=== PATIENT | female | born 1970 | race Caucasian/White ===

== ENCOUNTER 2023-05-02 08:26 | Day surgery (SDC) | payer MEDICARE, MEDICAID, SELFPAY ==
--- NOTE | 2023-05-02 08:44 | W.PM.PROCNOT ---
Date of procedure: 05/02/23 Procedure: Left knee joint injection using Durolane 3ml. Pre & postoperative diagnosis: pain secondary to left knee osteoarthritis. Immediate complications none. Anesthesia: 2% lidocaine plain for skin wheal. After informed consent was obtained, patient brought to the OR placed in the supine position. Skin overlying the area was prepped and draped using Betadine. 25-gauge 1/2 inch needle was used for skin wheal over the medial aspect of the left knee joint identified under fluoroscopy. Omnipaque dye was used to confirm needle tip placement within the knee joint space 0.5 mL use of the injection. Subsequently 3ml of durolane was injected into the space. No indication of intravascular or intraneuronal needle tip placement or injection was noted post procedure. The needle was removed, patient transferred to Recovery room in stable condition to discharged home after meeting criteria. Surgeon: Tera Minaya
[2023-05-02 09:01] VITALS: BP 88/59; PULSE 74; RESP 16; TEMP 36.7; O2SAT 98
[2023-05-02] MEDS: IOHEXOL 240 MG/ML - 10 ML VIAL INJ (10:15)
[2023-05-02] MEDS: LIDOCAINE HCL 2% PF 100 MG/5 ML VIAL INJ (10:15)
[2023-05-02] MEDS: HYALURONATE SODIUM, STABILIZED 60 MG/3 ML SYRINGE IU (10:16)
[2023-05-02 10:17] VITALS: BP 100/62; BP 105/56; PULSE 66; PULSE 67; RESP 20; O2SAT 94; O2SAT 97
== END 2023-05-02 10:23 | disposition home or self-care (01) ==
LOC: SURGOUT 08:29
PROVIDERS: PCP Internal Medicine; Visit Provider Anesthesiology Pain Medicine
DX: M17.12 Unilateral primary osteoarthritis, left knee (principal)
CPT/HCPCS: 20610; 77002; J7318; Q9966

== ENCOUNTER 2023-05-19 08:16 | Outpatient (OUT) | payer MEDICARE, MEDICAID, SELFPAY ==
--- NOTE | 2023-05-19 08:33 | P.CN_ITS ---
Consult Note: HPI Data of Consult Patient: known to practice within the last 3 years Consult date: 05/19/23 Requesting Physician: JOSE MATIAS NP Primary Care Provider: Shaikh Betty MD Consult Narrative Narrative: Patient is here for f/u of durolane injection done 03/30/23 . She recieved 30% relief of pain. Pain today is in left knee worse with standing, stairs . No new sensorimotor or bowel or bladder issues. No adverse medication SE. Medication regimen assists patient with being better able to complete ADLs. She has had steroid injections previously without relief. She states she saw ortho awhile back who told her she would need replacement eventually, but she does not want surgery at this time. We discussed the GNB procedure as a possible option and she was given educational information. cc:: CC: JOSE MATIAS NP Review of Systems ROS Status of ROS 10 or more systems reviewed and unremarkable except as noted in history and below Musculoskeletal Reports: joint pain PFSH PFS Medical History (Updated 05/19/23 @ 08:51 by JOSE MATIAS NP) Surgical History Meds Home Medications and Allergies Home Medications Medication Instructions Recorded Confirmed Type MEDICAL MARIJUANA PRN pain 04/27/23 History baclofen 10 mg tablet 10 mg PO TID PRN muscle spasm 04/27/23 05/02/23 History hydroxyzine pamoate 25 mg capsule 25 mg PO TID-QID PRN nausea and 04/27/23 05/02/23 History (Vistaril) vomiting lamotrigine 150 mg tablet 150 mg PO Q12H 04/27/23 05/02/23 History quetiapine 300 mg tablet 300 mg PO .QD 04/27/23 05/02/23 History sertraline 50 mg tablet (Zoloft) 50 mg PO DAILY 04/27/23 05/02/23 History sumatriptan succinate 100 mg See Rx Instructions PO .COMPLEX 04/27/23 05/02/23 History tablet (Imitrex) Allergies Allergy/AdvReac Type Severity Reaction Status Date / Time morphine Allergy Vomiting Verified 05/02/23 08:58 Exam Constitutional Documenting provider has reviewed patient's vital signs: yes Common normals: no apparent distress, average body habitus, oriented x3, healthy appearing, alert and well nourished General appearance: cooperative, comfortable and well developed Orientation/consciousness: Yes awake, Yes oriented to person, Yes oriented to place and Yes oriented to time HENMT Common normals: normocephalic and moist oral mucous membranes Respiratory Common normals: normal respiratory effort, no retractions and no use of acces silverio muscles Effort & inspection: able to speak in complete sentences and symmetric chest movement Extremity Common normals: normal to inspection, normal capillary refill, no joint enlargement and no pedal edema Other: pain medial and lateral left knee worse with ROM. muscle strength 4/5 left d/t pain, 5/5 right LE with intact sensation Assessment and Plan Assessment and Plan (1) Knee osteoarthritis: Plan educational material on GNB f/u 6 months
== END 2023-05-19 08:17 | disposition home or self-care (01) ==
LOC: PM 08:17
PROVIDERS: PCP Internal Medicine; Visit Provider Nurse Practitioner
DX: M17.12 Unilateral primary osteoarthritis, left knee (principal)
CPT/HCPCS: G0463

== ENCOUNTER 2024-05-06 20:25 | Outpatient (REF) | payer MEDICARE, MEDICAID, SELFPAY ==
[2024-05-09 12:18] LABS: Age Gdln ACOG Testing Note (.); HPV Aptima Negative (Negative); IGP, Aptima HPV, rfx 16/18,45 Note (.)
== END 2024-05-06 20:26 | disposition home or self-care (01) ==
LOC: LAB 20:25
PROVIDERS: PCP Internal Medicine; Visit Provider Obstetrics & Gynecology
DX: Z01.419 Encounter for gynecological examination (general) (routine) without abnormal findings (principal)
CPT/HCPCS: 88175

== ENCOUNTER 2025-05-08 12:21 | Outpatient (REF) | payer MEDICARE, MEDICAID, SELFPAY ==
--- OUTSIDE RECORDS SUMMARY | 2025-05-07 09:00 | XMS_ITS | Encounter Summary ---
Author Organization [facility] 1bib [facility] Address [id number] [address] [place] [address] Care Team Providers Care Paster Hat Lining Name Role Phone Monserrat Bell APRN-SUSTAINABILITY DIRECTOR Primary Care Provider Reason for Referral * Cardiology (Routine) - Closed Specialty Diagnoses / Procedures Referred By Contac t Referred To Contact Diagnoses Preop examination Procedures ECG 12 lead Senthil Ortega MD [address] [place] [id number] Phone: tel: fax: Referral ID Status Reason Start Date Expiration Date Visits Re quested Visits Authorized [id number] Closed 04/29/2025 04/29/2026 1 1 Encounter Details Date Type Department Care Team (Latest Contact Info) Description 05/07/2025 9:00 AM EDT Procedure visit [facility] - Pre Admit [address] [place] [address] Preop examination (Primary Dx) Social History Tobacco Use Types Packs/Day Years Used Date Smoking Tobacco: Never Smokeless Tobacco: Never Alcohol Use Standard Drinks/Week Comments Yes 0 (1 standard drink = 0.6 oz pur e alcohol) rarely [facility] Utilities Answer Date Recorded In the past 12 months has e electric, gas, oil, or water company threatened to shut off services in your home? No 02/14/2024 AUDIT-C Answer Date Recorded Q1: How often do you have a drink containing alc ohol? Monthly or less 02/14/2024 Q2: How many drinks containi ng alcohol do you have on a typical day when you are drinking? 1 or 2 02/14/2024 Q3: How often do you have si x or more drinks on one occasion? Never 02/14/2024 PHQ-2 Answer Date Recorded Total Score 0 02/14/2024 PRAPARE - Transportation Answer Date Re corded In the past 12 months, has l ack of transportation kept you from medical appointments or from getting medications? No 02/04 In the past 12 months, has l ack of transportation kept you from meetings, work, or from getting things needed for daily living? No 02/14/2024 Housing Instability Answer Date Recorde d Are you worried or concerned that in the next two months you may not have stable housing that you own, rent or stay in as a part of a household? No 02/14/2024 Childcare Answer Date Recorded Childcare Unknown 04/17/2019 Employment Answer Date Recorded Employment Unknown 04/17/2019 Hunger Screening Answer Date Recorded Within the past 12 months we worried whether our food would run out before we got money to buy more. Never True 10/29/2024 Within the past 12 months th e food we bought just didn't last and we didn't have money to get more. Never True 10/29/2024 Purpose - Life Answer Date Recorded Purpose and direction in life Unknown Comments No Sex and Gender Information Value Date Recorded Sex Assigned at Not on file Legal Sex Female 5:18 PM EDT Gender Identity Not on file Sexual Orientation Not on file documented as of this encounter Last Filed Vital Signs Vital Sign Reading Time Taken Comments Blood Pressure - - Pulse - - Temperature - - Respiratory Rate - - Oxygen Saturation - - Inhaled Oxygen Concentration - - Weight 76.2 kg (168 lb) 05/07/2025 9:04 AM EDT Height 157.5 cm (5' 2 ) 05/07/2025 9:04 AM EDT Body Mass Index 30.73 05/07/2025 9:04 AM EDT documented in this encounter Patient Instructions * Patient Instructions* Shelly Hamilton RN - 05/07/2025 9:00 AM EDT Preoperative Education Checklist- General Surgery date: 05/27/25 Surgery time: 1230 p.m. Arrival time: 1030 a.m. 1. Bring a photo ID and your insurance card with you the day of surgery. You will check in at the main lobby of the [facility]- registration desk is straight ahead as soon as you walk in. Tell them you are here for surgery. 2. If you have a Living Will/Durable Power of Pad Assembler for Health Care that is not on file here, please bring a copy the day of surgery. 3. Please shower/bathe the night before surgery with the provided soap or wipes. Do not shower the morning of surgery- you will do use wipes when you arrive here at the hospital before getting into your surgical gown. Do not shave the area of your procedure for 2 days prior to your surgery. 4. NO powder, lotion, perfume/cologne, aftershave, make-up, deodorant, or hair products after you have bathed. 5. NO nail russian/acrylic on at least one finger. If you are having a hand, wrist or foot surgery then all nail russian and artificial/acrylic nails must be removed from that hand or foot. 6. Avoid ALL Aspirin and non-steroidal anti-inflammatory drugs and certain vitamins (Ibuprofen, Advil, Aleve, Excedrin, Meloxicam, Celebrex, fish/krill oil, etc.) for 7 days prior to surgery as instructed by your surgeon and/or your prescribing doctor. Tylenol IS ALLOWED. If you are on Ticlid, Xarelto, Eliquis, Pradaxa, Plavix or Coumadin, please check with your prescribing doctor for instructions for when to stop them. 7. If you use an inhaler, continue to use it routinely. 8. Nothing to eat or drink (not even water, gum, mints, or hard candy!) AFTER midnight prior to your surgery. 9. Take only medications that you are instructed to on the morning of surgery with a TINY SIP OF WATER. 10. Choose a responsible adult that will be able to drive you home when you are discharged from your hospital stay for your surgery and can stay with you in your home for 24 hours after your procedure. You must NOT drive any vehicle or operate any machinery for 24 hours after surgery. 11. When you dress for your appointment, please wear loose fitting clothing that is appropriate to accommodate your surgical area procedure. BRING WITH YOU ANY DEVICES YOU MAY NEED: CHARLES hose, ice machine, sling/swath, brace or special shoe, oversized zip-up or button up shirt, CPAP machine if staying overnight. 12. Do NOT wear jewelry, watches, or any piercings or metal for surgery- leave these valuables and money at home. 13. Do NOT wear contact lenses for surgery- glasses are okay if needed. 14. The anesthesiologist will talk with you the day of surgery and will ask you to sign a Consent Form. 15. Refrain from smoking or any type of tobacco use for at least 8 hours and marijuana for 24 hoursprior to arrival for your surgery. 16. Notify your surgeon if you develop any illness before your surgery. 17. If you are staying overnight, please DO NOT BRING your home medications with you. 18. If you have any questions prior to surgery, please call the Preadmission Testing office at [phone], Mon.-Fri. 7 a.m.-3 p.m. Leave a voicemail if needed. Pre-Surgery Instructions: Medication Instructions lamoTRIgine (LaMICtal) 150 mg tablet Stop taking 0 days prior to procedure ascorbic acid, vitamin C, (VITAMIN C) 250 mg tablet Stop taking 0 days prior to procedure calcium citrate (CALCITRATE) 200 mg (950 mg) tablet Stop taking 0 days prior to procedure cholecalciferol, vitamin D3, (VITAMIN D3) 5,000 units capsule Stop taking 0 days prior to procedure estradioL (ESTRACE) 1 mg tablet Stop taking 0 days prior to procedure magnesium (MAGTAB) 84 mg tablet extended release CR tablet Stop taking 0 days prior to procedure omeprazole (PriLOSEC) 20 mg capsule Continue as prescribed, take morning of procedure QUEtiapine (SEROquel) 300 mg tablet Stop taking 0 days prior to procedure SUMAtriptan (IMITREX) 100 mg tablet Stop taking 0 days prior to procedure traZODone (DESYREL) 50 mg tablet Stop taking 0 days prior to procedure How to Avoid an Infection after Your Surgery Your doctor will give you specific instructions, but remember: -ALWAYS wash hands before caring for your incision. -No picking, scratching, or rubbing your incision. -No creams, lotion, powder, rubbing alcohol or hydrogen peroxide on the incision (can harm the tissue and slow healing). -Your doctor will give you specific instructions for what type of dressing you will need and how often it will need changed for infection purposes. -No tight clothing on incision. -Do not allow anyone to touch your incision unless they are cleaning, checking, or redressing it (be sure they wash their hands first). -No contact of your incision with pets; avoid sleeping with pets. -Take full course of antibiotic if prescribed for you after surgery- do not stop unless directed home your physician. You may also be given an antibiotic prior to your surgery to help prevent surgical site infections. -Eat a healthy and varied diet including proteins, fruits, and vegetables to help promote wound healing and keep blood sugars under control if you are diabetic. -Smoking slows the healing process by decreasing the amount of oxygen in your blood that is needed for tissue healing. Try to avoid or stop smoking if possible. LOOK at your incision each morning and each night to check the progress of healing. Some soreness, numbness, itching and/or mild bruising around the incision is normal. Call your doctor if you noticeany of the following: -Increased redness or hardening around the incision area. -Increased pain at the incision site. -Incision feels hot to the touch. -Swelling or pulling apart of the incision edges. -Yellow or green drainage or foul odor coming from the incision. -Bleeding from the incision (apply pressure as needed). -Fever higher than 101 degrees Fahrenheit for more than 4 hours. SHOWERING: Your doctor will give you specific instructions, but remember: -Be careful getting into and out of the shower. -Showers should be quick (5 minutes or less). -Use a clean washcloth to gently wash your incision with soap and water and pat the area dry with aclean towel. -No re-using wash cloths or towels; get a fresh one to clean your incision. -Do not soak in the bathtub, go swimming or use a hot tub (Jacuzzi), or perform activities where your incision is submerged in water or exposed to any fluids or substances until instructed by your doctor. -If your have the sticky strips (steri-strips) over the incision, it is OK to shower with them. Do not remove them. Let them fall off on their own. If you have a question, call your doctor’s office. Go to the follow-up appointment with your doctor. documented in this encounter Miscellaneous Notes * Perioperative Nursing Note - Shelly Hamilton RN - 05/07/2025 9:00 AM EDT Preoperative Education Checklist- General Surgery date: 05/27/25 Surgery time: 1230 p.m. Arrival time: 1030 a.m. 1. Bring a photo ID and your insurance card with you the day of surgery. You will check in at the main lobby of the [facility]- registration desk is straight ahead as soon as you walk in. Tell them you are here for surgery. 2. If you have a Living Will/Durable Power of Pad Assembler for Health Care that is not on file here, please bring a copy the day of surgery. 3. Please shower/bathe the night before surgery with the provided soap or wipes. Do not shower the morning of surgery- you will do use wipes when you arrive here at the hospital before getting into your surgical gown. Do not shave the area of your procedure for 2 days prior to your surgery. 4. NO powder, lotion, perfume/cologne, aftershave, make-up, deodorant, or hair products after you have bathed. 5. NO nail russian/acrylic on at least one finger. If you are having a hand, wrist or foot surgery then all nail russian and artificial/acrylic nails must be removed from that hand or foot. 6. Avoid ALL Aspirin and non-steroidal anti-inflammatory drugs and certain vitamins (Ibuprofen, Advil, Aleve, Excedrin, Meloxicam, Celebrex, fish/krill oil, etc.) for 7 days prior to surgery as instructed by your surgeon and/or your prescribing doctor. Tylenol IS ALLOWED. If you are on Ticlid, Xarelto, Eliquis, Pradaxa, Plavix or Coumadin, please check with your prescribing doctor for instructions for when to stop them. 7. If you use an inhaler, continue to use it routinely. 8. Nothing to eat or drink (not even water, gum, mints, or hard candy!) AFTER midnight prior to your surgery. 9. Take only medications that you are instructed to on the morning of surgery with a TINY SIP OF WATER. 10. Choose a responsible adult that will be able to drive you home when you are discharged from your hospital stay for your surgery and can stay with you in your home for 24 hours after your procedure. You must NOT drive any vehicle or operate any machinery for 24 hours after surgery. 11. When you dress for your appointment, please wear loose fitting clothing that is appropriate to accommodate your surgical area procedure. BRING WITH YOU ANY DEVICES YOU MAY NEED: CHARLES hose, ice machine, sling/swath, brace or special shoe, oversized zip-up or button up shirt, CPAP machine if staying overnight. 12. Do NOT wear jewelry, watches, or any piercings or metal for surgery- leave these valuables and money at home. 13. Do NOT wear contact lenses for surgery- glasses are okay if needed. 14. The anesthesiologist will talk with you the day of surgery and will ask you to sign a Consent Form. 15. Refrain from smoking or any type of tobacco use for at least 8 hours and marijuana for 24 hoursprior to arrival for your surgery. 16. Notify your surgeon if you develop any illness before your surgery. 17. If you are staying overnight, please DO NOT BRING your home medications with you. 18. If you have any questions prior to surgery, please call the Preadmission Testing office at [phone], Mon.-Fri. 7 a.m.-3 p.m. Leave a voicemail if needed. Pre-Surgery Instructions: Medication Instructions lamoTRIgine (LaMICtal) 150 mg tablet Stop taking 0 days prior to procedure ascorbic acid, vitamin C, (VITAMIN C) 250 mg tablet Stop taking 0 days prior to procedure calcium citrate (CALCITRATE) 200 mg (950 mg) tablet Stop taking 0 days prior to procedure cholecalciferol, vitamin D3, (VITAMIN D3) 5,000 units capsule Stop taking 0 days prior to procedure estradioL (ESTRACE) 1 mg tablet Stop taking 0 days prior to procedure magnesium (MAGTAB) 84 mg tablet extended release CR tablet Stop taking 0 days prior to procedure omeprazole (PriLOSEC) 20 mg capsule Continue as prescribed, take morning of procedure QUEtiapine (SEROquel) 300 mg tablet Stop taking 0 days prior to procedure SUMAtriptan (IMITREX) 100 mg tablet Stop taking 0 days prior to procedure traZODone (DESYREL) 50 mg tablet Stop taking 0 days prior to procedure How to Avoid an Infection after Your Surgery Your doctor will give you specific instructions, but remember: -ALWAYS wash hands before caring for your incision. -No picking, scratching, or rubbing your incision. -No creams, lotion, powder, rubbing alcohol or hydrogen peroxide on the incision (can harm the tissue and slow healing). -Your doctor will give you specific instructions for what type of dressing you will need and how often it will need changed for infection purposes. -No tight clothing on incision. -Do not allow anyone to touch your incision unless they are cleaning, checking, or redressing it (be sure they wash their hands first). -No contact of your incision with pets; avoid sleeping with pets. -Take full course of antibiotic if prescribed for you after surgery- do not stop unless directed home your physician. You may also be given an antibiotic prior to your surgery to help prevent surgical site infections. -Eat a healthy and varied diet including proteins, fruits, and vegetables to help promote wound healing and keep blood sugars under control if you are diabetic. -Smoking slows the healing process by decreasing the amount of oxygen in your blood that is needed for tissue healing. Try to avoid or stop smoking if possible. LOOK at your incision each morning and each night to check the progress of healing. Some soreness, numbness, itching and/or mild bruising around the incision is normal. Call your doctor if you noticeany of the following: -Increased redness or hardening around the incision area. -Increased pain at the incision site. -Incision feels hot to the touch. -Swelling or pulling apart of the incision edges. -Yellow or green drainage or foul odor coming from the incision. -Bleeding from the incision (apply pressure as needed). -Fever higher than 101 degrees Fahrenheit for more than 4 hours. SHOWERING: Your doctor will give you specific instructions, but remember: -Be careful getting into and out of the shower. -Showers should be quick (5 minutes or less). -Use a clean washcloth to gently wash your incision with soap and water and pat the area dry with aclean towel. -No re-using wash cloths or towels; get a fresh one to clean your incision. -Do not soak in the bathtub, go swimming or use a hot tub (Jacuzzi), or perform activities where your incision is submerged in water or exposed to any fluids or substances until instructed by your doctor. -If your have the sticky strips (steri-strips) over the incision, it is OK to shower with them. Do not remove them. Let them fall off on their own. If you have a question, call your doctor’s office. Go to the follow-up appointment with your doctor. * Perioperative Nursing Note - Shelly Hamilton RN - 05/07/2025 9:00 AM EDT Hibiclens and surgical instructions reviewed. Patient verbalized understanding. documented in this encounter Plan of Treatment Upcoming Encounters Date Type Department Care Team (Late st Contact Info) Description 05/27/2025 12:30 PM EDT Hospital Encounter [facility] - Surgery [address] [facility] [place] [address] Jos Landeros Jr., DO [address] [facility] [address] [place] [address] 05/27/2025 12:30 PM EDT - 05/27/2025 1:45 PM EDT Surgery [facility] - Surgery [address] [facility] [place] [address] Jos Landeros Jr., DO [address] [facility] [address] [place] [address] ARTHROSCOPIC LATERAL RELEASE KNEE [[id number] (CPT )] Scheduled Procedures Name Priority Associated Diagnoses Date/Ti nm ARTHROSCOPIC LATERAL RELEASE KNEE left knee internal derangement 05/27/2025 12:30 PM EDT ARTHROSCOPIC PARTIAL SYNOVECTOMY KNEE left knee internal derangement 05/27/2025 12:30 PM EDT documented as of this encounter Goals Goal Patient Goal Type Associated Problems Recent Progress Patient-Stated? Author Autogenera charles Goal Care Plan Autogenerated Problem No Katy Godinez documented as of this encounter Results * ECG 12 lead (05/07/2025 9:16 AM EDT) 05/07/2025 9:16 AM EDT Narrative TRACEMASTERVUE - 05/07/2025 2:48 PM EDT us Senthil Ortega MD ECG ORDERABLES Final Result [facility]AC[facility]ASTERVUE documented in this encounter Visit Diagnoses Diagnosis Preop examination- Primary Unspecified pre-operative examination Preop examination Unspecified pre-operative examination documented in this encounter Additional Health Concerns Active Problems Noted Date Diagnosed Date Autogenerated Problem 04/22/2025 Assessment Noted Time PHQ-9 Depression Total Score: 0 02/14/20 24 2:46 PM EDT documented as of this encounter Care Teams Paster Hat Lining Relationship Specialty Start Date End Date Monserrat Bell, STRUCTURAL MILL SUPERVISOR-SUSTAINABILITY DIRECTOR PCP - General Nurse Practitioner 01/31/25 documented as of this encounter
--- OUTSIDE RECORDS SUMMARY | 2025-05-07 09:01 | XMS_ITS | Encounter Summary ---
Author Organization [facility] tem Address [id number] [address] [place] [address] Care Team Providers Care Dcs Engineer Name Role Phone Monserrat Bell APRN-ASPHALT ROLLER OPERATOR Primary Care Provider Reason for Referral * Cardiology (Routine) - Closed Specialty Diagnoses / Procedures Referred By Contac t Referred To Contact Diagnoses Preop examination Procedures ECG 12 lead Senthil Ortega MD [facility] [place] [address] Phone: tel: fax: Referral ID Status Reason Start Date Expiration Date Visits Re quested Visits Authorized [id number] Closed 04/29/2025 04/29/2026 1 1 Reason for Visit * Cardiology (Routine) - Closed Specialty Diagnoses / Procedures Referred By Contac t Referred To Contact Diagnoses Preop examination Procedures ECG 12 lead Senthil Ortega MD [address] [place], [place] [address] [address] Phone: tel: fax: Referral ID Status Reason Start Date Expiration Date Visits Re quested Visits Authorized [id number] Closed 04/29/2025 04/29/2026 1 1 Encounter Details Date Type Department Care Team (Latest Contact Info) Description 05/07/2025 9:01 AM EDT - 05/07/2025 11:59 PM EDT Hospital Encounter [facility] - Cardiovascular [address] [place] [id number] Senthil Ortega MD [address] [place] [address] Preop examination Discharge Disposition: Home Social History Tobacco Use Types Packs/Day Years Used Date Smoking Tobacco: Never Smokeless Tobacco: Never Alcohol Use Standard Drinks/Week Comments Yes 0 (1 standard drink = 0.6 oz pur e alcohol) rarely [facility] Utilities Answer Date Recorded In the past 12 months has th e electric, gas, oil, or water company [...] on file documented as of this encounter Medications at Time of Discharge ascorbic acid, vitamin C, (VITAMIN C) 250 mg tablet Take 1 tablet (250 mg total) by mouth in the morning. calcium citrate (CALCITRATE) 200 mg (950 mg) tablet Take 1 tablet (200 mg total) by mouth in the morning. cholecalciferol, vitamin D3, (VITAMIN D3) 5,000 units capsule Take 1 capsule (5,000 Units total) by mouth in the morning. lamoTRIgine (LaMICtal) 150 mg tablet Take 1 tablet (150 mg total) by mouth in the morning and 1 tablet (150 mg total) before bedtime. magnesium (MAGTAB) 84 mg tablet extended release CR tablet Take 1 tablet (84 mg total) by mouth in the morning. omeprazole (PriLOSEC) 20 mg capsule 1 capsule (20 mg total) every morning before breakfast. 03/26/2024 QUEtiapine (SEROquel) 300 mg tablet Take 1 tablet (300 mg total) by mouth nightly. SUMAtriptan (IMITREX) 100 mg tablet Take 1 tablet (100 mg total) by mouth as needed. traZODone (DESYREL) 50 mg tablet Take 1 tablet (50 mg total) by mouth nightly as needed. documented as of this encounter Plan of Treatment Upcoming Encounters Date Type Department Care Team (Late st Contact Info) Description 05/27/2025 12:30 PM EDT Hospital Encounter [facility] - Surgery [address] [place] [address] Jos Landeros Jr., DO [address] [facility] [address] [place] [address] 05/27/2025 12:30 PM EDT - 05/27/2025 1:45 PM EDT Surgery [facility] - Surgery [address] [facility] [place] [address] Jos Landeros Jr., DO [address] [facility] [address] [place] [address] ARTHROSCOPIC LATERAL RELEASE KNEE [[id number] (CPT )] Scheduled Procedures Name Priority Associated Diagnoses Date/Ti me ARTHROSCOPIC LATERAL RELEASE KNEE left knee internal derangement 05/27/2025 12:30 PM EDT ARTHROSCOPIC PARTIAL SYNOVECTOMY KNEE left knee internal derangement 05/27/2025 12:30 PM EDT documented as of this encounter Goals Goal Patient Goal Type Associated Problems Recent Progress Patient-Stated? Author Autogenera leif Goal Care Plan Autogenerated Problem No Katy Godinez documented as of this encounter Procedures Procedure Name Priority Date/Time Associated Diagnosis Comments ECG 12-LEAD Routine 05/07/2025 9:16 AM EDT Preop examination documented in this encounter Results * ECG 12 lead (05/07/2025 9:16 AM EDT) 05/07/2025 9:16 AM EDT Narrative TRACEMASTERVUE - 05/07/2025 2:48 PM EDT us Senthil Ortega MD ECG ORDERABLES Final Result TRACEMASTERVUE documented in this encounter Visit Diagnoses Diagnosis Preop examination Unspecified pre-operative examination documented in this encounter Additional Health Concerns Active Problems Noted Date Diagnosed Date Autogenerated Problem 04/22/2025 Assessment Noted Time PHQ-9 Depression Total Score: 0 02/14/20 24 2:46 PM EDT documented as of this encounter Care Teams Dcs Engineer Relationship Specialty Start Date End Date Monserrat Bell, MUD TANK OPERATOR-ASPHALT ROLLER OPERATOR PCP - General Nurse Practitioner 01/31/25 documented as of this encounter
--- OUTSIDE RECORDS SUMMARY | 2025-05-08 09:00 | XMS_ITS | Encounter Summary ---
Author Organization [facility] Address [address] [facility] [place] [address] Care Team Providers Care Airline Attendant Name Role Phone Cyndi Kaci Rios CAFETERIA FOOD SERVER-S Unavailable [phone] Juan José Giron MD Primary Care Provider [phone] Deepti Delong RN PRIMARY CARE Unavailable Yue Carter MEDICAL DOSIMETRIST-REGIONAL SERVICE MANAGER Unavailable Reason for Visit * Reason Comments Well Women Visit Encounter Details Date Type Department Care Team (Late st Contact Info) Description 05/08/2025 9:00 AM EDT Office Visit [facility] [address] [place] [address] Yayo Tierney, DO [address] [facility] [address] [place] [place], [place] [id number] Well woman exam with routine gynecological exam; Encounter for screening mammogram for malignant neoplasm of breast; Postmenopausal state; Night sweats; Hot flashes, menopausal Social History Tobacco Use Types Packs/Day Years Used Date Smoking Tobacco: Never Passive Smoke Exposure: Past Smokeless Tobacco: Never Alcohol Use Standard Drinks/Week Comments Yes 0 (1 standard drink = 0.6 oz pure alcohol) caffeine:1-2 cups coffee and green tea AUDIT-C Answer Date Recorded Q1: How often do you have a drink containing alc ohol? Monthly or less 11/28/2023 Average Number of Drinks Not on file 024 Q3: How often do you have si x or more drinks on one occasion? Less than monthly 11/28/2023 PHQ-2 Answer Date Recorded Patient Health Questionnaire-2 Score 0 01/21/2025 Education Answer Date Recorded What is the highest level of school you have completed or the highest degree you have received? High school graduate 04/18/2023 Comments No Sex and Gender Information Value Date Recorded Sex Assigned at Not on file Legal Sex Female 7:36 PM EDT Gender Identity Not on file Sexual Orientation Not on file Occupation Industry Job Start Date Job End Date disability Not on file Not on file Not on file Not on file Not on file Not on file Not on file documented as of this encounter Last Filed Vital Signs Vital Sign Reading Time Taken Comments Blood Pressure 100/76 05/08/2025 9:14 AM EDT Pulse - - Temperature - - Respiratory Rate - - Oxygen Saturation - - Inhaled Oxygen Concentration - - Weight 79.5 kg (175 lb 4 oz) 05/08/2025 9:14 AM EDT Height - - Body Mass Index 32.05 02/13/2025 8:38 AM EDT documented in this encounter Progress Notes * Fransisca Ladd LPN - 05/08/2025 9:00 AM EDT Reason for Appointment: Patient ID: Tracy Martins is a 54 y.o. female who presents for Well Women Visit Patient presents today for Annual Exam. and Consult appointment. MEDICATIONS Current Outpatient Medications Medication Instructions cholecalciferol (Vitamin D-3) 125 MCG (5000 UT) capsule 1 capsule, Daily estradiol (ESTRACE) 1 mg, Oral, Daily ibuprofen 800 mg, Every 8 hours PRN lamoTRIgine (LAMICTAL) 150 mg, Oral, 2 times daily PARoxetine (PAXIL) 20 mg, Oral, Every morning phentermine 37.5 mg, Oral, Daily before breakfast QUEtiapine (SEROQUEL) 300 mg, Oral, Nightly SUMAtriptan (IMITREX) 100 mg, Once as needed traZODone (DESYREL) 100 mg, Oral, Nightly PRN ALLERGIES Allergies Allergen Reactions Morphine Other Reaction(s): vomiting PROBLEMS Active Ambulatory Problems Diagnosis Date Noted Bipolar II disorder, most recent episode major depressive (HCC) 03/07/2023 VIRAL (generalized anxiety disorder) 03/07/2023 Grief 03/07/2023 History of hysterectomy 07/21/2017 Chronic pain syndrome 08/24/2019 Encounter for Medicare annual wellness exam 10/23/2023 Chronic right-sided low back pain with right-sided sciatica 12/04/2023 Lumbar epidural mass (HCC) 12/20/2023 Arthritis of left knee 01/04/2024 Hammer toe 01/04/2024 Moderate episode of recurrent major depressive disorder (HCC) 01/04/2024 Primary localized osteoarthrosis of ankle and foot 01/04/2024 Osteoarthritis of knee 01/04/2024 Primary osteoarthritis 01/04/2024 Lumbar back pain with radiculopathy affecting right lower extremity 01/04/2024 Herniated lumbar intervertebral disc 02/14/2024 Herniation of intervertebral disc of cervical region 02/02/2024 Migraine headache 02/02/2024 Encounter for screening mammogram for malignant neoplasm of breast 03/07/2024 Hot flashes, menopausal 03/07/2024 BMI 34.0-34.9,adult 09/10/2024 Weight gain, abnormal 01/16/2025 Class 1 obesity due to excess calories without serious comorbidity in adult 01/16/2025 Abnormal thyroid blood test 02/13/2025 Mixed hyperlipidemia 02/13/2025 Bilateral chronic knee pain 04/02/2025 Effusion of right knee 04/02/2025 Effusion of left knee 04/02/2025 Other constipation 04/21/2025 Night sweats 05/08/2025 Postmenopausal state 05/08/2025 Well woman exam with routine gynecological exam 05/08/2025 Resolved Ambulatory Problems Diagnosis Date Noted Neck pain 10/01/2019 Neuropathy 06/10/2019 Acute right-sided low back pain with right-sided sciatica 10/23/2023 Primary osteoarthritis of right foot 01/04/2024 Primary osteoarthritis of left hand 01/04/2024 Primary osteoarthritis, right hand 01/04/2024 Lumbago with sciatica, right side 10/23/2023 Hospital discharge follow-up 03/07/2024 Past Medical History: Diagnosis Date Anxiety Bipolar 1 disorder (HCC) Cervical disc herniation Chronic pain Depression History of psychiatric hospitalization History of repair of hiatal hernia Hoarseness of voice Migraines Osteoarthritis PTSD (post-traumatic stress disorder) HISTORY PAST MEDICAL HISTORY SOCIAL HISTORY Past Medical History: Diagnosis Date Anxiety Bipolar 1 disorder (HCC) Cervical disc herniation Chronic pain spine Depression History of psychiatric hospitalization Haas 30-40 days History of repair of hiatal hernia oct 2024 Hoarseness of voice Migraines Osteoarthritis PTSD (post-traumatic stress disorder) Social History Tobacco Use Smoking status: Never Passive exposure: Past Smokeless tobacco: Never Vaping Use Vaping status: Never Used Substance Use Topics Alcohol use: Yes Comment: caffeine:1-2 cups coffee and green tea Drug use: Not Currently Types: Marijuana Comment: medical card - FAMILY HISTORY Family History Problem Relation Name Age of Onset Lung cancer Mother Heart disease Father cad stent Osteoarthritis Maternal Grandmother hands Diabetes Maternal Grandfather Heart disease Maternal Grandfather Hyperlipidemia Maternal Grandfather Osteoarthritis Mother's Sister hands Diabetes Father's Sister Hypertension Father's Sister Hyperlipidemia Father's Sister Heart disease Father's Sister Other (vulvar cancer) Cousin Mental illness Neg Hx Alcohol abuse Neg Hx Drug abuse Neg Hx SURGICAL HISTORY Past Surgical History: Procedure Laterality Date APPENDECTOMY BUNIONECTOMY - right foot HYSTERECTOMY 02/06/2012 /RSO/Fibroid/adenomyosis HYSTEROSCOPY (D/C/ repeat due to HCG levels) /[place] LIPOMA RESECTION Right 11/2019 right upper back LIPOMA RESECTION 2019 OTHER SURGICAL HISTORY 12/07/[address] Johnson PIP JOINT FUSION Right 08/27/2021 3 joints fused on right foot Dr. Olivo LA FUSION FINGER JOINT Left 10/10/2019 Index SMALL JOINT ARTHROCENTESIS 10/22/2015 Joint injection hand/Jax REVIEW OF SYSTEMS Review of Systems: Review of Systems Constitutional: Negative. HENT: Negative. Eyes: Negative. Respiratory: Negative. Cardiovascular: Negative. Gastrointestinal: Negative. Genitourinary: Negative. Musculoskeletal: Negative. Skin: Negative. Neurological: Negative. All other systems reviewed and are negative. Hematological: Negative. Endocrine: Negative. Allergic/Immunologic: Negative. OBJECTIVE Objective: Physical Exam Constitutional: Appearance: Normal appearance. She is well-developed. Genitourinary: Vulva normal. Vaginal cuff intact. Cervix is absent. Uterus is absent. Breasts: Breasts are soft. Right: Normal. Left: Normal. Cardiovascular: Rate and Rhythm: Normal rate and regular rhythm. Abdominal: General: Bowel sounds are normal. There is no distension. Palpations: Abdomen is soft. Tenderness: There is no abdominal tenderness. There is no guarding or rebound. Musculoskeletal: General: No swelling. Normal range of motion. Right lower leg: No edema. Left lower leg: No edema. Neurological: Mental Status: She is alert and oriented to person, place, and time. Skin: General: Skin is warm and dry. Psychiatric: Mood and Affect: Mood normal. Behavior: Behavior normal. Vitals and nursing note reviewed. Exam conducted with a drop wire aligner present. Vitals: Estimated body mass index is 32.05 kg/m² as calculated from the following: Height as of 02/13/25: 5' 2 . Weight as of this encounter: 175 lb 4 oz. BP: 100/76 No LMP recorded (lmp unknown). Patient has had a hysterectomy. ASSESSMENT & PLAN ICD-10-CM 1. Well woman exam with routine gynecological exam Z01.419 THIN PREP TIS PAP AND HR HPV DNA 2. Encounter for screening mammogram for malignant neoplasm of breast Z12.31 Bilateral screening mammogram Bilateral screening mammogram 3. Postmenopausal state Z78.0 4. Night sweats R61 5. Hot flashes, menopausal N95.1 Annual: Patient presents today for an annual exam. Patient states she is doing well and has complaints night sweats, hot flashes and mood changes. Discussed estroven OTC and patient voiced she has tried thiswith no improvement. Discussed Effexor, patches and other methods. Patient desires to try Effexor at this time and if changes are needed patient will reach out to office. Pap was obtained without difficulty and patient given mammogram order to have scheduled/obtained. Patient is up to date with colonoscopy. Orders Placed This Encounter Procedures Bilateral screening mammogram Follow Up: Patient is to return in one year for annual & schedule telehealth 8 weeks unless needed otherwise. Documented by Fransisca Ladd LPN on behalf of: Yayo Tierney DO documented in this encounter Plan of Treatment Upcoming Encounters Date Type Department Care Team (Late st Contact Info) Description 05/12/2025 8:00 AM EDT Social Work [facility] [address] [place] [address] Kaci Hanna LISW-S [address] [place], [place] [id number] 05/13/2025 1:30 PM EDT Office Visit [facility] [address] [place] [address] Quan Mccoy, PA [address] [place] [address] 05/14/2025 9:00 AM EDT Office Visit [facility] [address] [facility] [address] [place] [address] Yue Carter, MEDICAL DOSIMETRISTJOHN J. [facility] [address] [facility] [address] [place] [address] 06/03/2025 10:00 AM EDT Office Visit [facility] [address] [place] [address] Monserrat Bell, MARÍA [address] [place] [address] 06/12/2025 3:00 PM EDT Office Visit [facility] [address] [place] [address] Jose Haile, RN PRIMARY CARE [address] [place] [address] 07/03/2025 8:00 AM EDT Office Visit [facility] [address] [place] [address] Yayo Tierney, DO [address] [address] 05/12/2026 9:00 AM EDT Office Visit [facility] [address] [place] [address] Yayo Tierney, DO [address] [address] Scheduled Orders Name Type Priority Associated Diagnoses Orde r Schedule Bilateral screening mammogram Imaging Routine Encounter for screening mammogram for malignant neoplasm of breast Expected: 05/08/2025, Expires: 07/09/2026 THIN PREP TIS PAP AND HR HPV DNA Pathology and Cytology Routine Well woman exam with routine gynecological exam Ordered: 05/08/2025 documented as of this encounter Visit Diagnoses Diagnosis Well woman exam with routine gynecological exam Routine gynecological examination Encounter for screening mammogram for malignant neoplasm of breast Postmenopausal state Asymptomatic postmenopausal status (age-related) (natural) Night sweats Generalized hyperhidrosis Hot flashes, menopausal Symptomatic menopausal or female climacteric states documented in this encounter Additional Health Concerns Assessment Noted Time PHQ-9 Depression Total Score: 0 01/22/20 25 10:59 AM EDT documented as of this encounter Care Teams Airline Attendant Relationship Specialty Start Date End Date Juan José Giron MD [address] [place] [address] PCP - General Family Medicine 07/16/24 Kaci Hanna LISW-S [address] [place] [address] Printing Services Coordinator Behavioral Health 03/28/23 Deepti Delong NP [address] [place] [address] Nurse Practitioner Family Medicine 07/16/24 Yue Carter APRN-REGIONAL SERVICE MANAGER [address] [facility] [address] [place] [address] Nurse Practitioner Psychiatry 11/22/24 documented as of this encounter
--- OUTSIDE RECORDS SUMMARY | 2025-05-08 12:28 | XMS_ITS | Encounter Summary ---
Author Organization [facility] Address [address] [place] [address] Care Team Providers Care Draw Machine Operator Name Role Phone Cyndi Kaic BARRONW-S Unavailable [phone] Juan José Giron MD Primary Care Provider [phone] Deepti Delong PORTABLE GRINDING MACHINE OPERATOR Unavailable [phone] Yue Carter FOUNDRY HAND-LABORATORY ADMINISTRATIVE DIRECTOR Unavailable Encounter Details Date Type Department Care Team (Late st Contact Info) Description 05/08/2025 Bamboo flowsheet [facility] [address] [place] [address] Yayo Tierney, DO [address] [place], [facility] Social History Tobacco Use Types Packs/Day Years [...] on file documented as of this encounter Plan of Treatment Upcoming Encounters Date Type Department Care Team (Late st Contact Info) Description 05/12/2025 8:00 AM EDT Social Work [facility] [address] [facility] [address] Kaci Hanna S, GIZZARD SKIN REMOVER-S [address] [place] [address] 05/13/2025 1:30 PM EDT Office Visit [facility] [address] [place] [phone] Quan Mccoy, PA [address] [facility] [address] [place] [address] 05/14/2025 9:00 AM EDT Office Visit [facility] [address] [facility] [address] [place] [address] Yue Carter, FOUNDRY HANDFREEMAN HEALTH SYSTEM [address] [facility] [address] [place] [address] 06/03/2025 10:00 AM EDT Office Visit [facility] [address] [place] [address] Monserrat Bell NP [address] [place] [address] 06/12/2025 3:00 PM EDT Office Visit [facility] [address] [place] [phone] Jose Haile, PORTABLE GRINDING MACHINE OPERATOR [address] [place] [address] 07/03/2025 8:00 AM EDT Office Visit [facility] [address] [facility] [place] [address] Yayo Tierney, DO [address] [facility] [place] [address] 05/12/2026 9:00 AM EDT Office Visit [facility] [address] [facility] [place] [address] Yayo Tierney, DO [address] [facility] [address] [place], [place] [id number] documented as of this encounter Visit Diagnoses Not on filedocumented in this encounter Additional Health Concerns Assessment Noted Time PHQ-9 Depression Total Score: 0 01/22/20 25 10:59 AM EDT documented as of this encounter Care Teams Draw Machine Operator Relationship Specialty Start Date End Date Juan José Giron MD [address] [place] [phone] PCP - General Family Medicine 07/16/24 Kaci aHnna, AMANS [address] [place] [address] Area Forester Behavioral Health 03/28/23 Deepti Delong, MARÍA [address] [place] [address] Nurse Practitioner Family Medicine 07/16/24 Yue Carter APRN-LABORATORY ADMINISTRATIVE DIRECTOR [address] [place] [address] Nurse Practitioner Psychiatry 11/22/24 documented as of this encounter
--- OUTSIDE RECORDS SUMMARY | 2025-05-08 12:29 | XMS_ITS | Clinical Summary ---
Author Organization [facility] Address [address] [place] [address] Care Team Providers Care Agents' Records Clerk Name Role Phone Shaikh ROLANDO Hernández Primary Care Provider [phone] Allergies Active Allergy Reactions Criticality Noted Date Comments Morphine Nausea Only 01/25/2023 Medications SUMAtriptan (IMITREX) 100 MG tablet Take 1 tablet by mouth once as needed for Migraine Active lamoTRIgine (LAMICTAL) 150 MG tablet Take 1 tablet by mouth 2 times daily Active QUEtiapine (SEROQUEL XR) 300 MG extended release tablet Take 1 tablet by mouth nightly Active traMADol (ULTRAM) 50 MG tablet Take 1 tablet by mouth every 6 hours as needed for Pain. Active cyclobenzaprine (FLEXERIL) 5 MG tablet Take 1 tablet by mouth 3 times daily as needed for Muscle spasms Active vitamin D (CHOLECALCIFEROL ) 125 MCG (5000 UT) CAPS capsule Take 1 capsule by mouth daily Active Ascorbic Acid (VITAMIN C) 250 MG tablet Take 1 tablet by mouth daily Active Misc Natural Products (OSTEO BI-FLEX ADV DOUBLE ST PO) Take by mouth daily Active sertraline (ZOLOFT) 100 MG tablet Take 1.5 tablets by mouth daily Active traZODone (DESYREL) 50 MG tablet Take 1 tablet by mouth nightly as needed for Sleep Active hydrOXYzine HCl (ATARAX) 25 MG tablet Take 1 tablet by mouth 3 times daily as needed for Itching Active omeprazole (PRILOSEC) 20 MG delayed release capsuleIndicatio ns:Gastritis without bleeding, unspecified chronicity, unspecified gastritis type TAKE 1 CAPSULE BY MOUTH EVERY DAY IN THE MORNING BEFORE BREAKFAST 90 capsule 4 Active Active Problems No known active problems Family History Medical History Relation Name Comments Cancer Mother lung Rheum Arthritis Mother Relation Name Status Comments Mother Social History Tobacco Use Types Packs/Day Years Used Date Smoking Tobacco: Former Cigarettes Q uit: 2002 Smokeless Tobacco: Never Tobacco Cessation:Counseling Given: Not Answered Alcohol Use Standard Drinks/Week Comments Yes 0 (1 standard drink = 0.6 oz pur e alcohol) rarely Comments No Sex and Gender Information Value Date Recorded Sex Assigned at Not on file Legal Sex Female 9:24 AM EST Gender Identity Not on file Sexual Orientation Not on file Last Filed Vital Signs Vital Sign Reading Time Taken Comments Blood Pressure 97/55 02/14/2023 1:30 PM EDT Pulse 81 02/14/2023 1:30 PM EDT Temperature 36.3 C (97.4 F) 02/14/2023 1:05 PM EDT Respiratory Rate 16 02/14/2023 1:30 PM EDT Oxygen Saturation 100% 02/14/2023 1:30 PM EDT Inhaled Oxygen Concentration - - Weight 61.1 kg (134 lb 9.6 oz) 02/14/2023 11:45 AM EDT Height 157.5 cm (5' 2 ) 02/14/2023 11:45 AM EDT Body Mass Index 24.62 02/14/2023 11:45 AM EDT Plan of Treatment Health Maintenance Due Date Last Done Comments Depression Screen 1984 HIV screen 1987 Hepatitis C screen 1990 Hepatitis B vaccine (1 of 3 - 19+ 3-dose series) 1991 Pap smear 1993 Cervical cancer screen 2002 HPV (without or with Pap) 2002 Breast cancer screen 2012 Lipids 2012 FIT/FOBT: Average risk 2017 Fecal-DNA (Cologuard): [place] ge risk 2017 Sigmoidoscopy/CT colonography 2017 Pneumococcal 50+ years Vacci ne (1 of 1 - PCV) 2022 Shingles vaccine (1 of 2) 2022 Annual Wellness Visit (Medicare) 10/02/2023 COVID-19 Vaccine (2023-2 5 season) 2024 Flu vaccine (#1) 06/06/2025 Colonoscopy 02/15/2028 02/14/2023, 02/14/2023 Colorectal Cancer Screen 02/15/2028 DTaP/Tdap/Td vaccine (2 - Td or Tdap) 05/05/2029 05/05/2019 Hepatitis A vaccine Aged Out No longe r eligible based on patient's age to complete this topic Hib vaccine Aged Out No longer eligi ble based on patient's age to complete this topic Meningococcal (ACWY) vaccine Aged Out No longer eligible based on patient's age to complete this topic Meningococcal B vaccine Aged Out No l onger eligible based on patient's age to complete this topic Polio vaccine Aged Out No longer elig ible based on patient's age to complete this topic Procedures Procedure Name Priority Date/Time Associated Diagnosis Comments COLONOSCOPY PROCEDURE Routine 02/14/2023 11:30 AM EDT from Last 3 Months or Most Recently Relevant to Health Maintenance Results * Colonoscopy (02/14/2023 11:30 AM EDT) Narrative Epic, User - 02/14/2023 11:30 AM EDT No dictation Evelyn Rodriguez MD ENDOSCOPY ORDERABLES Final Res ult from Last 3 Months or Most Recently Relevant to Health Maintenance Insurance MEDICAID [place] MEDICARE Member Subscriber Plan / Payer (Ef fective 2021-Present) Name:Tracy Martins Relation to Subscriber:Self Name:Tracy Martins Payer ID:Not on file Group ID:Not on file Type:Not on file Address: [place] [id number] Care Teams Agents' Records Clerk Relationship Specialty Start Date End Date Shaikh Hernández MD PCP - General 02/06/23
--- OUTSIDE RECORDS SUMMARY | 2025-05-08 12:29 | XMS_ITS | Encounter Summary ---
Author Organization [facility] Address [address] [place] [address] Care Team Providers Care Disability Benefits Specialist Name Role Phone Kaci Hanna-S Unavailable [phone] Shaikh ROLANDO Hernández Primary Care Provider [phone] Juan José Giron MD Primary Care Provider [phone] Deepti Delong COMPRESSOR [employer] Unavailable [phone] Daisy-Yue Vidal TELEGRAPH SERVICE RATER-CUTLET MAKER PORK Unavailable Reason for Visit * Reason Comments Med Refill Encounter Details Date Type Department Care Team (Late st Contact Info) Description 01/18/2024 Refill [facility] [address] [place] [phone] Shaikh Hernández MD [address] [place] [id number] Acute right-sided low back pain with right-sided sciatica Social History Tobacco Use Types Packs/Day Years Used Date Smoking Tobacco: Never Passive Smoke Exposure: Past Smokeless Tobacco: Never Alcohol Use Standard Drinks/Week Comments Not Currently 0 (1 standard drink = 0.6 oz [...] Date Recorded Patient Health Questionnaire-2 Score 0 01/04/2024 Education Answer Date Recorded What is the highest level of school you have completed or the highest degree you have received? High school graduate 04/18/2023 Comments Unknown Sex and Gender Information Value Date Recorded Sex Assigned at Not on file Legal Sex Female 7:36 PM EDT Gender Identity Not on file Sexual Orientation Not on file Occupation Industry Job Start Date Job End Date disability Not on file Not on file Not on file documented as of this encounter Miscellaneous Notes * Telephone Encounter - Shaikh Betty MD - 01/18/2024 1:25 PM EDT Approving, but needs appt for additional refills. documented in this encounter Plan of Treatment Upcoming Encounters Date Type Department Care Team (Late st Contact Info) Description 05/12/2025 8:00 AM EDT Social Work [facility] [address] [place] [address] Kaci Hanna S, WOOL PRESSER-S [address] [place] [address] 05/13/2025 1:30 PM EDT Office Visit [facility] [address] [place] [phone] Quan Mccoy, PA [address] [facility] [address] [place] [address] 05/14/2025 9:00 AM EDT Office Visit [facility] [address] [facility] [address] [place] [phone] Yue Carter APRN-CUTLET MAKER PORK [address] [facility] [address] [place] [address] 06/03/2025 10:00 AM EDT Office Visit [facility] [address] [place] [address] Monserrat Bell, MARÍA [address] [place] [address] 06/12/2025 3:00 PM EDT Office Visit [facility] [address] [facility] [place] [phone] Jose Haile, MARÍA [address] [place] [address] 07/03/2025 8:00 AM EDT Office Visit [facility] [address] [facility] [place] [address] Yayo Tierney, DO [address] [facility] [address] [place], [place] [id number] 05/12/2026 9:00 AM EDT Office Visit [facility] [address] [facility] [place] [phone] Yayo Tierney, DO [address] [facility] [address] [place], [place] [id number] documented as of this encounter Visit Diagnoses Diagnosis Acute right-sided low back pain with right-sided sciatica documented in this encounter Additional Health Concerns Assessment Noted Time PHQ-9 Depression Total Score: 1 10/23/20 23 4:00 PM EST documented as of this encounter Care Teams Disability Benefits Specialist Relationship Specialty Start Date End Date Shaikh Hernández MD [address] [place] [address] PCP - General Internal Medicine 12/04/23 07/15/24 Juan José Giron MD [address] [place] [address] PCP - General Family Medicine 07/16/24 Kaci Hanna LISW-S [address] [place] [address] Vessel Manager Behavioral Health 03/28/23 Deepti Delong NP [address] [place] [address] Nurse Practitioner Family Medicine 07/16/24 Yue Carter, TELEGRAPH SERVICE RATER-CUTLET MAKER PORK [address] [place] [address] [place] [address] Nurse Practitioner Psychiatry 11/22/24 documented as of this encounter
--- OUTSIDE RECORDS SUMMARY | 2025-05-08 12:29 | XMS_ITS | Clinical Summary ---
Author Organization [facility] Healthcare Address [address] [place] [address] Care Team Providers Care Lace Burn Out Tender Name Role Phone CyndiKaciW-S Unavailable [phone] Juan José Giron MD Primary Care Provider [phone] Deepti Delong HOME ORGANIZER Unavailable Daisy-Yue Vidal WEATHER CLERK-CONSTRUCTION CONSULTANT Unavailable Allergies Active Allergy Reactions Criticality Noted Date Comments Morphine 03/07/2023 Other Reaction(s): vomiting Medications cholecalciferol (Vitamin D-3) 125 MCG (5000 UT) capsule Take 1 capsule by mouth Daily Active SUMAtriptan (Imitrex) 100 MG tablet Take 100 mg by mouth 1 (one) time if needed for migraine Active traZODone (Desyrel) 50 MG tabletIndication s:Other insomnia Take 2 tablets (100 mg) by mouth as needed at bedtime for sleep 180 tablet 01/23/20 24 Active ibuprofen 800 MG tablet Take 800 mg by mouth every 8 (eight) hours if needed 10/15/20 24 Active QUEtiapine (SEROquel) 300 MG tabletIndication s:Bipolar II disorder, most recent episode major depressive (HCC) Take 1 tablet (300 mg) by mouth at bedtime 90 tablet 03/19/20 25 025 Active PARoxetine (Paxil) 20 MG tabletIndication s:Bipolar II disorder, most recent episode major depressive (HCC) Take 1 tablet (20 mg) by mouth in the morning. 90 tablet 03/19/20 25 025 Active lamoTRIgine (LaMICtal) 150 MG tabletIndication s:Bipolar II disorder, most recent episode major depressive (HCC) Take 1 tablet (150 mg) by mouth in the morning and 1 tablet (150 mg) before bedtime. 180 tablet 03/19/20 25 025 Active phentermine 37.5 MG capsuleIndicatio ns:Weight gain, abnormal Take 1 capsule (37.5 mg) by mouth in the morning. Take before meals. 30 capsule 03/26/20 25 Active estradiol (Estrace) 1 MG tabletIndication s:H/O: hysterectomy TAKE 1 TABLET BY MOUTH EVERY DAY 90 tablet 3 04/29/20 25 Active venlafaxine XR (Effexor XR) 37.5 MG 24 hr capsuleIndicatio ns:Postmenopausa l state,Night sweats,Hot flashes, menopausal Take 1 capsule (37.5 mg) by mouth Daily Do not crush or chew. 30 capsule 11 05/08/20 25 026 Active estradiol (Estrace) 1 MG tabletIndication s:H/O: hysterectomy Take 1 tablet (1 mg) by mouth Daily 90 tablet 3 05/06/20 24 025 Discontinued Active Problems Problem Noted Date Diagnosed Date Night sweats 05/08/2025 Postmenopausal state 05/08/2025 Well woman exam with routine gynecological exam 05/08/2025 Other constipation 04/21/2025 Assessment & Plan (04/21/2025 12:42 PM EDT): Stop adipex Cont miralax and fiber/water intake Colonoscopy: 02/14/2023, polyp, tortuous colon Fu in 7 weeks if not better consider adding medication DD: IBS-C Bilateral chronic knee pain 04/02/2025 Assessment & Plan (04/21/2025 12:38 PM EDT): Continue with ortho Effusion of right knee 04/02/2025 Effusion of left knee 04/02/2025 Abnormal thyroid blood test 02/13/2025 Assessment & Plan (02/13/2025 6:11 AM EDT): TSH: 1.52, and free T4 0.57 (01/31/2025) Will recheck in 3 months Mixed hyperlipidemia 02/13/2025 Assessment & Plan (02/13/2025 6:13 AM EDT): TC 217, Trigs 99, HDL 54, LDL 143 (01/31/25) Recommend low fat options, exercises Monitor No statin at this time Weight gain, abnormal 01/16/2025 Assessment & Plan (04/21/2025 12:39 PM EDT): Pt meets qualifications of OAC 4731-09-09 for weight loss. BMI>30 or >27 with comorbid conditions. Notify office with any symptoms of chest pain, dyspnea, heart palpitations, or any anxiety symptoms. F/U in 4 weeks to document weight loss. Increase physical activity as tolerated, and lower caloric intake to 1600 calories daily if no contraindications OARRS reviewed Adipex: starting weight 189 Todays weight: 177 Total loss: 12 pounds loss Assessment & Plan (03/26/2025 10:43 AM EDT): Pt meets qualifications of OAC 4731-09-09 for weight loss. BMI>30 or >27 with comorbid conditions. Notify office with any symptoms of chest pain, dyspnea, heart palpitations, or any anxiety symptoms. F/U in 4 weeks to document weight loss. Increase physical activity as tolerated, and lower caloric intake to 1600 calories daily if no contraindications OARRS reviewed Adipex: starting weight 189 Todays weight: 173 Total loss: 16 pounds loss, since last appt none, but is on steriods and swelling in legs Prescribe month #4 Assessment & Plan (02/13/2025 8:43 AM EDT): Pt meets qualifications of OAC 4731-09-09 for weight loss. BMI>30 or >27 with comorbid conditions. Notify office with any symptoms of chest pain, dyspnea, heart palpitations, or any anxiety symptoms. F/U in 4 weeks to document weight loss. Increase physical activity as tolerated, and lower caloric intake to 1600 calories daily if no contraindications OARRS reviewed Adipex: starting weight 189 Todays weight: 173 Total loss: 16 pounds Prescribe month #3 Assessment & Plan (01/16/2025 1:24 PM EDT): Pt meets qualifications of OAC 4731-09-09 for weight loss. BMI>30 or >27 with comorbid conditions. Notify office with any symptoms of chest pain, dyspnea, heart palpitations, or any anxiety symptoms. F/U in 4 weeks to document weight loss. Increase physical activity as tolerated, and lower caloric intake to 1600 calories daily if no contraindications OARRS reviewed Adipex: starting weight 189 Todays weight: 176 Total loss: 13 pounds Prescribe month #2 Class 1 obesity due to exces s calories without serious comorbidity in adult 01/16/2025 Assessment & Plan (04/21/2025 12:38 PM EDT): Discussed with patient their BMI (actual, verses recommended). We have also discussed lifestyle modifications: attempts to perform physical activity as chronic conditions allow, also to monitor dietary intake: increasing protein/fruits/veggies and lowering carb intake (unless contraindicated). Limit sodas, juices, and sugary drinks. Going to stop adipex d/t side effects Assessment & Plan (03/26/2025 6:41 AM EDT): Discussed with patient their BMI (actual, verses recommended). We have also discussed lifestyle modifications: attempts to perform physical activity as chronic conditions allow, also to monitor dietary intake: increasing protein/fruits/veggies and lowering carb intake (unless contraindicated). Limit sodas, juices, and sugary drinks. Currently taking adipex Assessment & Plan (02/13/2025 6:09 AM EDT): Discussed with patient their BMI (actual, verses recommended). We have also discussed lifestyle modifications: attempts to perform physical activity as chronic conditions allow, also to monitor dietary intake: increasing protein/fruits/veggies and lowering carb intake (unless contraindicated). Limit sodas, juices, and sugary drinks. Currently taking adipex Assessment & Plan (01/16/2025 6:55 AM EDT): Discussed with patient their BMI (actual, verses recommended). We have also discussed lifestyle modifications: attempts to perform physical activity as chronic conditions allow, also to monitor dietary intake: increasing protein/fruits/veggies and lowering carb intake (unless contraindicated). Limit sodas, juices, and sugary drinks. Currently taking adipex BMI 34.0-34.9,adult 09/10/2024 Assessment & Plan (12/17/2024 9:01 AM EST): BMI 34.6 Current weight 189 Goal weight: 125 5% is 9 pounds. Diet: Mostly home cooked meals. Does not like fast food. Buys meats locally. Minimal red meats. Moderate amounts of chicken. Moderate amount of vegetables. Minimal processed carbohydrates. Feels weakness is mindless snacking. Water: 64-84 ounces per day Caffeine: less than 1 cup of coffee per day Exercise: Rides exercise bike for one hour 3-4 times per week. Sleep: 7-8 hours per night, feels well rested. Discussed phentermine with patient. Patient agreeable to trying at this time. Discussed desired outcome, potential adverse reactions, and allowed time for questions. Will initiate phentermine today. Pt meets qualifications of OAC 4731-09-09 for weight loss. BMI>30 or >27 with comorbid conditions. Blood pressure WNL. Notify office with any symptoms of chest pain, dyspnea, heart palpitations, or any anxiety symptoms. F/U in 4 weeks to document weight loss. Increase physical activity as tolerated, and lower caloric intake to 1600 calories daily if no contraindications Assessment & Plan (09/10/2024 11:03 AM EST): Discussed with patient their BMI (actual, verses recommended). We have also discussed lifestyle modifications: attempts to perform physical activity as chronic conditions allow, also to monitor dietary intake: increasing protein/fruits/veggies and lowering carb intake (unless contraindicated). Limit sodas, juices, and sugary drinks. Also discussed oral medications that can be utilized for weight loss, as well as surgical options for weight loss. Encounter for screening mamm ogram for malignant neoplasm of breast 03/07/2024 Hot flashes, menopausal 03/07/2024 Assessment & Plan (03/07/2024 9:24 AM EDT): Patient reports hot flashes - progressively worsening for 4-5 years. She had hysterectomy with right oophorectomy about 12 years ago No personal hx of ovarian, endometrial or breast cancer. 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 She has daily symptoms. Will refer to Dr. Tierney for menopausal symptoms Herniated lumbar intervertebral disc 02/14/2024 Herniation of intervertebral disc of cervical re gion 02/02/2024 Migraine headache 02/02/2024 Assessment & Plan (01/16/2025 1:14 PM EDT): Current meds: imitrex # GRAF per month: not monthly Does imitrex help: yes Triggers: cold weather Other meds tried: none Happy with results Assessment & Plan (09/10/2024 10:59 AM EST): Well controlled. Had one migraine two weeks ago, first episode in 4 months. Imitrex PRN. Arthritis of left knee 01/04/2024 Hammer toe 01/04/2024 Moderate episode of recurrent major depressive d isorder 01/04/2024 Assessment & Plan (01/16/2025 6:57 AM EDT): Current meds: vistaril prn, lamictal, paxil, seroquel and trazodone Under the care of psych Assessment & Plan (09/10/2024 11:02 AM EST): Follows closely with [facility] . Feels symptoms are well controlled. Medication managed by [facility] PMHNP. Denies SI/HI. Continue regimen as directed. Primary localized osteoarthrosis of ankle and fo ot 01/04/2024 Osteoarthritis of knee 01/04/2024 Primary osteoarthritis 01/04/2024 Lumbar back pain with radicu lopathy affecting right lower extremity 01/04/2024 Assessment & Plan (03/07/2024 9:15 AM EDT): Patient had ongoing lumbar back pain for about 5-6 months. Had no improvement with conservative therapy. Her MRI of spine showed 1.2 cm nonenhancing abnormality into the right neural foramen at the level of L2-L3 is in favor of a extruded disc material. She was seen by NS - and had surgery in February 27 - she is here today for a follow up. She is doing much better and has minimal back pain. She has no radicular symptoms. She has recovered well from surgery. She is using Mobic and gabapentin Patient was seen by NS post operatively. Surgical scar has healed well. No concern for post operative infection Assessment & Plan (01/04/2024 9:33 AM EST): Ongoing lumbar back pain for about 5-6 months. Worsens with any movement, radiation to her right LE. No improvement with NSAIDS, PT, muscle relaxant. Reports RLE weakness numbness. Pain is gradually worsening and is now more or less persistent. Denies fecal/urinary incontinence. Using ibuprofen as needed for pain with some improvement in symptoms. No prior hx of back surgery. She has hx of herniated/degenerative disc disease at cervical spine. MRI of spine shows 1.2 cm nonenhancing abnormality into the right neural foramen at the level of L2-L3 is in favor of a extruded disc material. Patient referred to Dr Andersen. She was given his office information to call in case their office does not reach out. Patient has tried NSADIS, tylenol with no relief in her symptoms. I will call in gabapentin 300 mg TID along with short course of Oxycodone to be used as needed for acute pain control until she is seen by NS. Patient counseled and educated on adverse effects, drug interactions and to reach out to office/pharmacy if questions or concerns related to new medications. Patient also educated on safety issues related to opioid use. Lumbar epidural mass 12/20/2023 Assessment & Plan (12/20/2023 3:23 AM EST): MRI Lumbar spine ordered for back pain showed a 1.2 cm mass at the right L2-3 neural foramina producing mass effect upon the right L2 nerve root. MRI with contrast recommended by Radiology. Order placed. Chronic right-sided low back pain with right-courtney ed sciatica 12/04/2023 Assessment & Plan (12/04/2023 9:52 AM EST): low back pain, initially intermittent, now more or less persistent. Worsens with any movement, radiation to her right thigh Using ibuprofen as needed for pain with some improvement in symptoms. Feels numb/week in right RLE. No incontinence. Denies any injury. No prior hx of back surgery. She has hx of herniated/degenerative disc disease at cervical spine. Exam indicated no tenderness in midline, tenderness noted more so on the right side in lumbar region and weakness in hip flexion and knee extension. Pain persistent, not improving - even with conservative measures. She participated in PT, has been using muscle relaxant and NSAIDS with no benefit/improvement. XR shows degenerative changes of spine. Will order an MRI LS spine. Trial of meloxicam as needed for pain. Can use tylenol as needed. If worsening pain/progressive weakness/numbness - patient instructed to go to ED or reach out to office based on the severity of her symptoms Encounter for Medicare annual wellness exam 10/06 Assessment & Plan (10/23/2023 5:51 PM EST): Patient here for medicare wellness exam. Also address this appointment - her acute back pain. She has been doing well other than the back pain. Upto date on age appropriate cancer screening. Educated/counseled on her medical problems. Reviewed medical,surgical and social hx. Bipolar II disorder, most recent episode major d epressive 03/07/2023 Assessment & Plan (01/16/2025 1:14 PM EDT): Under the care of [facility] mental health VIRAL (generalized anxiety disorder) 03/07/2023 Assessment & Plan (01/16/2025 6:57 AM EDT): Current meds: vistaril, lamictal, paxil, seroquel, and trazodone Under the care of psych provider for this Grief 03/07/2023 Chronic pain syndrome 08/24/2019 History of hysterectomy 07/21/2017 Resolved Problems Problem Noted Date Diagnosed Date Resolved Date Hospital discharge follow-up 03/07/2024 01/16/2025 Assessment & Plan (03/07/2024 9:16 AM EDT): Hospital discharge follow up - had lumbar surgery on 02/13. No post op complications. She recovered well from the surgery. Has only minimal discomfort and no pain or radicular symptoms anymore. Surgical scar is well healed. Reviewed hospital records, updated medication list. Primary osteoarthritis of right foot 01/04/2024 01/16/2025 Primary osteoarthritis of left hand 01/04/2024 01/16/2025 Primary osteoarthritis, right hand 01/04/2024 01/16/2025 Acute right-sided low back p ain with right-sided sciatica 10/23/2023 01/16/2025 Assessment & Plan (01/04/2024 9:16 AM EST): low back pain, intermittent, ongoing for 3 months. Worsens with any movement, radiation to her right thigh Using ibuprofen as needed for pain with some improvement in symptoms. Feels numb/week in right RLE. No incontinence. Denies any injury. No prior hx of back surgery. She has hx of herniated/degenerative disc disease at cervical spine. Exam indicated tenderness in midline, more so on the right side in lumbar region and weakness in all movements '-hip flexion, knee flexion/extension/ankle plantarflexion/dorsiflexion. Likely due to pain and not true weakness. Trial of baclofen alongwith short course of prednisone for her back pain. MRI LS spine shows a 1.2 cm soft tissue abnormality in the right neural foramen at the level of L2-L3. Postcontrast examination reveals no evidence of abnormal enhancement of these soft tissue abnormality. Appearance is in favor of extruded disc material. Refer to NS Assessment & Plan (01/01/2024 11:41 AM EST): low back pain, intermittent, ongoing for 3 months. Worsens with any movement, radiation to her right thigh Using ibuprofen as needed for pain with some improvement in symptoms. Feels numb/week in right RLE. No incontinence. Denies any injury. No prior hx of back surgery. She has hx of herniated/degenerative disc disease at cervical spine. Exam indicated tenderness in midline, more so on the right side in lumbar region and weakness in all movements '-hip flexion, knee flexion/extension/ankle plantarflexion/dorsiflexion. Likely due to pain and not true weakness. Trial of baclofen alongwith short course of prednisone for her back pain. MRI LS spine shows a 1.2 cm soft tissue abnormality in the right neural foramen at the level of L2-L3. Postcontrast examination reveals no evidence of abnormal enhancement of these soft tissue abnormality. Appearance is in favor of extruded disc material. Refer to NS Assessment & Plan (10/23/2023 5:50 PM EST): Acute low back pain, intermittent, ongoing for 3-4 weeks. Worsens with any movement, radiation to her right thigh Using ibuprofen as needed for pain with some improvement in symptoms. Feels numb/week in right RLE. No incontinence. Denies any injury. No prior hx of back surgery. She has hx of herniated/degenerative disc disease at cervical spine. Exam indicated tenderness in midline, more so on the right side in lumbar region and weakness in all movements '-hip flexion, knee flexion/extension/ankle plantarflexion/dorsiflexion. Likely due to pain and not true weakness. Will order XR, PT eval and rx. Trial of baclofen alongwith short course of prednisone for her back pain. If worsening pain/progressive weakness/numbness - patient instructed to go to ED or reach out to office based on the severity of her symptoms Lumbago with sciatica, right side 10/23/2023 01/16/2025 Overview (03/07/2024): Last Assessment & Plan: low back pain, intermittent, ongoing for 3 months. Worsens with any movement, radiation to her right thigh Using ibuprofen as needed for pain with some improvement in symptoms. Feels numb/week in right RLE. No incontinence. Denies any injury. No prior hx of back surgery. She has hx of herniated/degenerative disc disease at cervical spine. Exam indicated tenderness in midline, more so on the right side in lumbar region and weakness in all movements '-hip flexion, knee flexion/extension/ankle plantarflexion/dorsiflexion. Likely due to pain and not true weakness. Trial of baclofen alongwith short course of prednisone for her back pain. MRI LS spine shows a 1.2 cm soft tissue abnormality in the right neural foramen at the level of L2-L3. Postcontrast examination reveals no evidence of abnormal enhancement of these soft tissue abnormality. Appearance is in favor of extruded disc material. Refer to NS Last Assessment & Plan: low back pain, initially intermittent, now more or less persistent. Worsens with any movement, radiation to her right thigh Using ibuprofen as needed for pain with some improvement in symptoms. Feels numb/week in right RLE. No incontinence. Denies any injury. No prior hx of back surgery. She has hx of herniated/degenerative disc disease at cervical spine. Exam indicated no tenderness in midline, tenderness noted more so on the right side in lumbar region and weakness in hip flexion and knee extension. Pain persistent, not improving - even with conservative measures. She participated in PT, has been using muscle relaxant and NSAIDS with no benefit/improvement. XR shows degenerative changes of spine. Will order an MRI LS spine. Trial of meloxicam as needed for pain. Can use tylenol as needed. If worsening pain/progressive weakness/numbness - patient instructed to go to ED or reach out to office based on the severity of her symptoms Neck pain 10/01/2019 01/16/2025 Neuropathy 06/10/2019 01/16/2025 Encounters Date Type Department Care Team Description 05/08/2025 9:00 AM EDT Office Visit [facility] [address] [place] [address] Yayo Tierney, DO Well woman exam with routine gynecological exam; Encounter for screening mammogram for malignant neoplasm of breast; Postmenopausal state; Night sweats; Hot flashes, menopausal 05/08/2025 Bamboo flowsheet [facility] [address] [place] [address] Yayo Tierney, 04/27/[address] [facility] [address] [place] [address] Yayo Tierney, DO H/O: hysterectomy 04/22/2025 10:15 AM EDT Office Visit [facility] [place] [address] Quan Mccoy, PA Acute pain of right knee (Primary Dx); Acute pain of left knee; Effusion of right knee; Effusion of left knee 04/22/2025 Bamboo flowsheet [facility] [address] [place] [id number] Quan Mccoy PA 04/22/2025 Travel 04/21/2025 11:30 AM EDT Office Visit [facility] [address] [place] [address] Monserrat Bell, MARÍA Other constipation (Primary Dx); Class 1 obesity due to excess calories without serious comorbidity in adult, unspecified BMI; Weight gain, abnormal; Bilateral chronic knee pain 04/21/2025 8:30 AM EDT Treatment [facility] [address] [facility] [place] [id number] Freddie Corona, PT Bilateral chronic knee pain (Primary Dx); Effusion of right knee; Effusion of left knee 04/21/2025 Bamboo flowsheet [facility] [address] [facility] [place] [address] Freddie Corona, PT 04/21/2025 Travel 04/16/2025 8:00 AM EDT Treatment [facility] [address] [place] [address] Freddie Corona, PT Bilateral chronic knee pain (Primary Dx); Effusion of right knee; Effusion of left knee 04/16/2025 Travel 04/15/2025 8:00 AM EDT Social Work [facility] [address] [place] [address] Kaci Hanna, INSPECTOR FINAL ASSEMBLY MECHANICAL-S VIRAL (generalized anxiety disorder) ; Major depressive disorder, recurrent episode, moderate (HCC) 04/15/2025 Bamboo flowsheet [facility] [address] [place] [address] Kaci Hanna, INSPECTOR FINAL ASSEMBLY MECHANICAL-S 04/15/2025 Travel 04/14/2025 8:00 AM EDT Treatment [facility] [address] [place] [address] Freddie Corona, PT Bilateral chronic knee pain (Primary Dx); Effusion of right knee; Effusion of left knee 04/14/2025 Bamboo flowsheet [facility] [address] [place] [address] Freddie Corona, PT 04/14/2025 Travel 04/09/2025 8:00 AM EDT Treatment [facility] [address] [place] [address] Freddie Corona, PT Bilateral chronic knee pain (Primary Dx); Effusion of right knee; Effusion of left knee 04/09/2025 Bamboo flowsheet [facility] [address] [place] [address] Freddie Corona, PT 04/09/2025 Travel 04/07/2025 10:00 AM EDT Treatment [facility] [address] [place] [address] Freddie Corona, PT Bilateral chronic knee pain (Primary Dx); Effusion of right knee; Effusion of left knee 04/07/2025 Bamboo flowsheet [facility] [address] [place] [address] Freddie Corona, PT 04/07/2025 Travel 04/02/2025 12:00 PM EDT Evaluation [facility] [address] [place] [address] Freddie Corona, PT Bilateral chronic knee pain (Primary Dx); Effusion of right knee; Effusion of left knee 04/02/2025 Plan of Care Documentation [facility] [address] [place] [address] 04/02/2025 Bamboo flowsheet [facility] [address] [place] [address] Freddie Corona, PT 04/02/2025 Travel 03/26/2025 10:00 AM EDT Office Visit [facility] [address] [place] [address] Monserrat Bell NP Weight gain, abnormal (Primary Dx); Class 1 obesity due to excess calories without serious comorbidity in adult, unspecified BMI 03/26/2025 Bamboo flowsheet [facility] [address] [place] [address] Monserrat Bell NP 03/25/2025 9:10 AM EDT Ancillary Procedure [facility] [address] [facility] [place] [address] 03/25/2025 9:05 AM EDT Ancillary Procedure [facility] [address] [facility] [place] [address] 03/25/2025 8:45 AM EDT Office Visit [facility] [address] [facility] [place] [phone] Quan Mccoy PA Acute pain of right knee (Primary Dx); Acute pain of left knee; Effusion of right knee; Effusion of left knee 03/25/2025 Bamboo flowsheet [facility] [address] [facility] [place] [address] Quan Mccoy PA 03/25/2025 Travel 03/19/2025 8:30 AM EDT Office Visit [facility] [address] [facility] [address] [place] [address] Yue Carter, WEATHER CLERK-CONSTRUCTION CONSULTANT Bipolar II disorder, most recent episode major depressive (HCC) 03/19/2025 Bamboo flowsheet [facility] [address] [facility] [address] [place] [address] Yue Carter APRN-CONSTRUCTION CONSULTANT 03/19/2025 Travel 03/17/2025 8:00 AM EDT Social Work [facility] [address] [facility] [place] [address] Kaci Hanna S, INSPECTOR FINAL ASSEMBLY MECHANICAL-S VIRAL (generalized anxiety disorder) ; Major depressive disorder, recurrent episode, moderate (HCC) 03/17/2025 Bamboo flowsheet [facility] [address] [facility] [place] [address] Kaci Hanna LISW-S 03/17/2025 Travel 02/13/2025 8:40 AM EDT Office Visit [facility] [address] [place] [address] Monserrat Bell NP Weight gain, abnormal (Primary Dx); Class 1 obesity due to excess calories without serious comorbidity in adult, unspecified BMI; Abnormal thyroid blood test; Mixed hyperlipidemia ; BMI 34.0-34.9,adult 02/13/2025 Bamboo flowsheet [facility] [address] [place] [address] Monserrat Bell NP 02/10/2025 8:00 AM EDT Social Work [facility] [address] [facility] [place] [address] Kaic Hanna LISW-S VIRAL (generalized anxiety disorder) ; Major depressive disorder, recurrent episode, moderate (HCC) 02/10/2025 Bamboo flowsheet [facility] [address] [facility] [place] [address] Kaci Hanna LISW-S 02/10/2025 Travel from Last 3 Months Immunizations Immunization Administration Dates Next Due Tdap 05/05/2019 Family History Medical History Relation Name Comments vulvar cancer Cousin Heart disease Father cad stent Diabetes Father's Sister Heart disease Father's Sister Hyperlipidemia Father's Sister Hypertension Father's Sister Diabetes Maternal Grandfather Heart disease Maternal Grandfather Hyperlipidemia Maternal Grandfather Osteoarthritis Maternal Grandmother hands Lung cancer Mother Osteoarthritis Mother's Sister hands Alcohol abuse Neg Hx Drug abuse Neg Hx Mental illness Neg Hx Relation Name Status Comments Cousin Father Father's Sister Maternal Grandfather Maternal Grandmother Mother Mother's Sister multiple aun ts Paternal Grandfather Paternal Grandmother Social History Tobacco Use Types Packs/Day Years Used Date Smoking Tobacco: Never Passive Smoke Exposure: Past Smokeless Tobacco: Never Tobacco Cessation:Counseling Given: Not [...] file Not on file Not on file Last Filed Vital Signs Vital Sign Reading Time Taken Comments Blood Pressure 100/76 05/08/2025 9:14 AM EDT Pulse 74 04/21/2025 11:30 AM EDT Temperature 36.6 C (97.8 F) 04/21/2025 11:30 AM EDT Respiratory Rate 18 04/21/2025 11:30 AM EDT Oxygen Saturation 95% 04/21/2025 11:30 AM EDT Inhaled Oxygen Concentration - - Weight 79.5 kg (175 lb 4 oz) 05/08/2025 9:14 AM EDT Height 157.5 cm (5' 2 ) 02/13/2025 8:38 AM EDT Body Mass Index 32.05 02/13/2025 8:38 AM EDT Plan of Treatment Upcoming Encounters Date Type Department Care Team (Late st Contact Info) Description 05/12/2025 8:00 AM EDT Social Work [facility] [address] [place] [address] Kaci Hanna LISW-S [address] [place] [address] 05/13/2025 1:30 PM EDT Office Visit [facility] [address] [place] [address] Quan Mccoy, PA [address] [place] [address] 05/14/2025 9:00 AM EDT Office Visit [facility] [address] [facility] [address] [place] [address] Yue Carter, WEATHER CLERK-CONSTRUCTION CONSULTANT [address] [place] [address] 06/03/2025 10:00 AM EDT Office Visit [facility] [address] [place] [phone] Monserrat Bell, MARÍA [address] [place] [address] 06/12/2025 3:00 PM EDT Office Visit [facility] [address] [place] [phone] Jose Haile, HOME ORGANIZER [address] [facility], [place] [phone] 07/03/2025 8:00 AM EDT Office Visit [facility] [address] [place] [address] Yayo Tierney, DO [address] [place] [address] 05/12/2026 9:00 AM EDT Office Visit [facility] [address] [place] [address] Yayo Tierney, DO [address] [place] [address] Health Maintenance Due Date Last Done Comments CT Colonography 1972 FIT-DNA 1972 FIT 1972 FOBT 1972 Sigmoidoscopy 1972 Mammogram 05/31/2025 05/31/2024, 03/, 06/06/2019, Additional history exists Influenza Vaccine (#1) 2025 Medicare Annual Wellness (AWV) 05/08/2026 0 05/08/2025, 05/06/2024, 10/23/2023 Colonoscopy 02/14/2033 02/14/2023 Colorectal Cancer Screening 02/14/2033 HPV/Cotest Discontinued 06/28/2019 Cervical Cancer Screening Discontinued Pap Smear Discontinued 05/06/2024, 06/28/2019 Procedures Procedure Name Priority Date/Time Associated Diagnosis Comments XR KNEE 1-2 VIEWS RIGHT Routine 03/25/2025 9:03 AM EDT Acute pain of right knee XR KNEE 1-2 VIEWS LEFT Routine 9:00 AM EDT Acute pain of left knee BI MAMMOGRAM SCREENING TOMOSYNTHESIS BILATERAL Routine 05/31/2024 10:52 AM EDT Breast cancer screening by mammogram PAP SMEAR Routine 05/06/2024 12:00 AM EDT Q - THINPREP(R) TIS AND HPV MRNA E6/E7 RFL HPV 16,18/45 Routine 06/28/2019 from Last 3 Months or Most Recently Relevant to Health Maintenance Results * XR knee 1 or 2 views right (03/25/2025 9:03 AM EDT) Anatomical Region Laterality Modality Lower Extremities, Knee Right Radiogra phic Imaging Narrative 03/25/2025 9:30 AM EDT Imaging Result: AP and Lateral right knee No acute fracture or dislocation High riding patella. Mild effusion, Joint space grossly preserved Impression: no acute bony process right knee us Quan LOZA IMG XR PROCEDURES Final Resul t * XR knee 1 or 2 views left (03/25/2025 9:00 AM EDT) Anatomical Region Laterality Modality Lower Extremities, Knee Left Radiogra phic Imaging Narrative 03/25/2025 9:29 AM EDT Imaging Result: AP and Lateral left knee No acute fracture or dislocation High riding patella. Mild effusion, mild flattening medial femur articular surface with subtle spurring medial joint line. Joint space grossly preserved Impression: no acute bony process left knee us Quan LOZA IMG XR PROCEDURES Edited Resu lt - Final * Bilateral screening mammogram with tomosynthesis (05/31/2024 10:52 AM EDT) Anatomical Region Laterality Modality Breast Bilateral Mammography 06/01/2024 4:30 PM EDT Impressions 06/03/2024 10:09 AM EDT BIRADS 2 - Benign Follow-up: Routine Screening Mamm Board Certified Radiologists. Accredited by the ACR and FDA. MAMMOGRAPHY IS VERY IMPORTANT TO YOUR HEALTH. THE [place] [employer] SOCIET[employer] GUIDELINES RECOMMEND THAT WOMEN 40 YEARS OF AGE AND OLDER SHOULD HAVE A MAMMOGRAM EVERY YEAR. A REMINDER LETTER WILL BE SENT AT THE APPROPRIATE TIME. THIS FACILITY UTILIZES A REMINDER SYSTEM TO ENSURE ALL PATIENTS RECEIVE REMINDER NOTIFICATIONS AT THE APPROPRIATE TIME BASED ON THE RECOMMENDATIONS OF THIS EXAM. THIS INCLUDES REMINDERS FOR ROUTINE SCREENING MAMMOGRAMS, DIAGNOSTIC MAMMOGRAMS IN WHICH THE PATIENT IS ASKED TO RETURN FOR ADDITIONAL VIEWS, OR OTHER BREAST IMAGING INTERVENTIONS WHEN APPROPRIATE. THE PATIENT WILL BE PLACED IN THE APPROPRIATE REMINDER SYSTEM INCLUDING A REMINDER AT THE APPROPRIATE TIME FOR ANY PENDING ADDITIONAL VIEWS. TRANSCRIBED BY: ELECTRONICALLY SIGNED BY: Yuniel Campoverde MD Narrative 06/03/2024 10:09 AM EDT EXAMINATION: BI MAMMOGRAM SCREENING TOMOSYNTHESIS BILATERAL CLINICAL HISTORY:screening breast cancer COMPARISON: June 03, 2019. RESULT: Density: Scattered fibroglandular density [2] Overall appearance is stable. Typically benign calcifications. There is no suspicious mass, asymmetry, architectural distortion, or calcification Procedure Note Yuniel Campoverde MD - 06/03/2024 EXAMINATION: BI MAMMOGRAM SCREENING TOMOSYNTHESIS BILATERAL CLINICAL HISTORY:screening breast cancer COMPARISON: June 03, 2019. RESULT: Density: Scattered fibroglandular density [2] Overall appearance is stable. Typically benign calcifications. There is no suspicious mass, asymmetry, architectural distortion, orcalcification IMPRESSION: BIRADS 2 - Benign Follow-up: Routine Screening Mamm Board Certified Radiologists. Accredited by the ACR and FDA. MAMMOGRAPHY IS VERY IMPORTANT TO YOUR HEALTH. THE [place] CANCER SOCIETYGUIDELINES RECOMMEND THAT WOMEN 40 YEARS OF AGE AND OLDER SHOULD HAVE AMAMMOGRAM EVERY YEAR. A REMINDER LETTER WILL BE SENT AT THE APPROPRIATE TIME. THIS FACILITYUTILIZES A REMINDER SYSTEM TO ENSURE ALL PATIENTS RECEIVE REMINDERNOTIFICATIONS AT THE APPROPRIATE TIME BASED ON THE RECOMMENDATIONS OF THISEXAM. THIS INCLUDES REMINDERS FOR ROUTINE SCREENING MAMMOGRAMS, DIAGNOSTICMAMMOGRAMS IN WHICH THE PATIENT IS ASKED TO RETURN FOR ADDITIONAL VIEWS,OR OTHER BREAST IMAGING INTERVENTIONS WHEN APPROPRIATE. THE PATIENT WILLBE PLACED IN THE APPROPRIATE REMINDER SYSTEM INCLUDING A REMINDER AT THEAPPROPRIATE TIME FOR ANY PENDING ADDITIONAL VIEWS. TRANSCRIBED BY: ELECTRONICALLY SIGNED BY: Yuniel Campoverde MD us Yayo Niall DO IMG BI PROCEDURES Final Result * Pap Smear (05/06/2024 12:00 AM EDT) Swab Cervical swab / Unknown us Yayo Niall DO LAB CYTOLOGY ORDERABLES Final Re sult EXTERNAL LAB * Q - THINPREP(R) TIS AND HPV MRNA E6/E7 RFL HPV 16,18/45 (06/28/2019) CLINICAL INFORMATION: None given [facility] LMP: None given [facility] PREV. PAP: None given [facility] PREV. BX: None given [facility] SOURCE: None given [facility] STATEMENT OF ADEQUACY: SEE NOTE [facility] Comment: Satisfactory for evaluation. Endocervical/transformation zone component absent. INTERPRETATION/RE SULT: Negative for intraepithelial lesion or malignancy. [facility] INFECTION: Fungal organisms morphologically consistent with [place] spp. [facility] COMMENT: This Pap test has been evaluated with computer assisted technology. [facility] PHOTO EQUIPMENT TECHNICIAN: SEE NOTE NO [facility] Comment: JJK, CT(ASCP) CT screening location: [facility], [address] [place] [address], [place] [address]. COMMENT SEE NOTE [facility] Comment: EXPLANATORY NOTE: The Pap is a screening test for cervical cancer. It is not a diagnostic test and is subject to false negative and false positive results. It is most reliable when a satisfactory sample, regularly obtained, is submitted with relevant clinical findings and history, and when the Pap result is evaluated along with historic and current clinical information. HPV MRNA E6/E7 Not Detected Not Detected [facility] Comment: This test was performed using the APTIMA HPV Assay ([employer] This assay detects E6/E7 viral messenger RNA (mRNA) from 14 high-risk HPV types (16,18,31,33,35,39,45,51,52,56,58,59,66,68). The analytical performance characteristics of this assay have been determined by [employer]. The modifications have not been cleared or approved by the FDA. This assay has been validated pursuant to the CLIA regulations and is used for clinical purposes. 06/28/2019 Mingo Conrad [facility] Final Result [facility] EXTER[facility] from Last 3 Months or Most Recently Relevant to Health Maintenance Insurance MEDICARE [place]ICAID [place] Care Teams Lace Burn Out Tender Relationship Specialty Start Date End Date Juan José Giron MD [address] [place] [phone] PCP - General Family Medicine 07/16/24 Kaci Hanna, WILL-S [address] [place], [place] [phone] Channel Opener [facility] 03/28/23 Deepti Delong NP [address] [place] [address] Nurse Practitioner Family Medicine 07/16/24 Yue Catrer APRN-CONSTRUCTION CONSULTANT [address] [place] [address] [place] [address] Nurse Practitioner Psychiatry 11/22/24
--- OUTSIDE RECORDS SUMMARY | 2025-05-08 12:29 | XMS_ITS | Encounter Summary ---
Author Organization [facility] Address [address] [place] [address] Care Team Providers Care Lead Programmer Name Role Phone Kaci HannaW-S Unavailable [phone] Shaikh ROLANDO Hernández Primary Care Provider [phone] Juan José Giron MD Primary Care Provider [phone] Deepti Delong CLEANING TECHNICIAN Unavailable [phone] Yue Carter DISH CARRIER-MORPHOLOGIST Unavailable Encounter Details Date Type Department Care Team (Late st Contact Info) Description 12/19/2023 External Result Encounter [facility] [address] [place] [phone] Shaikh Hernández MD [address] [place] [address] Social History Tobacco Use Types Packs/Day Years [...] Date Recorded Patient Health Questionnaire-2 Score 0 12/04/2023 Education Answer Date Recorded What is the [...] AM EDT Social Work [facility] [address] [place] [address] Kaci Hanna, WILL-Gabriel [address] [place] [address] 05/13/2025 1:30 PM EDT Office Visit [facility] [address] [place] [address] Quan Mccoy, PA [address] [facility] [address] [place] [address] 05/14/2025 9:00 AM EDT Office Visit [facility] [address] [facility] [address] [place] [address] Yue Carter, [facility] [address] [facility] [address] [place] [address] 06/03/2025 10:00 AM EDT Office Visit [facility] [address] [place] [address] Monserrat Bell NP [address] [place] [address] 06/12/2025 3:00 PM EDT Office Visit [facility] [address] [facility] [place] [address] Jose Haile, CLEANING TECHNICIAN [address] [place] [address] 07/03/2025 8:00 AM EDT Office Visit [facility] OB [address] [place] [address] Yayo Tierney, DO [address] [facility] [place] [address] 05/12/2026 9:00 AM EDT Office Visit [facility] OB [address] [place] [address] Yayo Tierney, DO [address] [facility] [place] [address] documented as of this encounter Procedures Procedure Name Priority Date/Time Associated Diagnosis Comments HEMOGLOBIN A1C Routine 09/13/2024 9:00 AM EST MR LUMBAR SPINE W CONTRAST 12/29/2023 7:58 PM EST MR LUMBAR SPINE WO CONTRAST 12/19/2023 10:54 AM EST documented in this encounter Results * Hemoglobin A1c (09/13/2024 9:00 AM EST) HEMOGLOBIN A1C 5.4 4.4 - 5.6 % [facility] Comment: NOTE ADA Guidelines Result HgbA1c Normal : less than 5.7 % Prediabetes : 5.7 % to 6.4 % Diabetes : > 6.4 % Use with caution in patients with abnormal hemoglobin variants as the half-life of red blood cells and in vivo glycation rates are affected. AVERAGE GLUCOSE 108 mg/dL [facility] Comment:PERFORMED AT [facility] [address],[place] [address] 09/13/2024 9:00 AM EST 09/13/2024 9:02 AM EST Deepti Delong CLEANING TECHNICIAN LAB BLOOD ORDERABLES Fin al Result [facility] * MR lumbar spine w contrast (12/29/2023 7:58 PM EST) Anatomical Region Laterality Modality Spine, L-spine Magnetic Resonan ce 12/29/2023 7:58 PM EST Narrative 12/29/2023 7:57 PM EST THIS EXAM WAS PERFORMED AT [facility] HISTORY: A 53-year-old female with the history of the abnormal MRI examination with right neural foraminal epidural mass at L2-L3. Further evaluation of the abnormality. TECHNIQUE: Postcontrast MRI examination of the lumbar spine is performed in the sagittal and axial projections. COMPARISON: Comparison is made with the MRI examination of the lumbar spine of 12/19/2023. FINDINGS: There is a 1.2 cm soft tissue abnormality in the right neural foramen at the level of L2-L3. Postcontrast examination reveals no evidence of abnormal enhancement of these soft tissue abnormality. Appearance is in favor of extruded disc material. No other enhancing abnormalities seen in the spinal canal or in neural foramina. Conus is seen at the level of T12-L1. IMPRESSION: * A 1.2 cm nonenhancing abnormality into the right neural foramen at the level of L2-L3 is in favor of a extruded disc material. * No other abnormal enhancing pathology is identified. Finalized by Gael Chiang MD on 12/29/2023 7:57 PM Procedure Note Radiology, Radiologist, - 12/29/2023 THIS EXAM WAS PERFORMED AT [facility] HISTORY: A 53-year-old female with the history of the abnormal MRIexamination with right neural foraminal epidural mass at L2-L3. Furtherevaluation of the abnormality. TECHNIQUE: Postcontrast MRI examination of the lumbar spine is performedin the sagittal and axial projections. COMPARISON: Comparison is made with the MRI examination of the lumbarspine of 12/19/2023. FINDINGS: There is a 1.2 cm soft tissue abnormality in the right neuralforamen at the level of L2-L3. Postcontrast examination reveals no evidence of abnormal enhancement ofthese soft tissue abnormality. Appearance is in favor of extruded discmaterial. No other enhancing abnormalities seen in the spinal canal or in neuralforamina. Conus is seen at the level of T12-L1. IMPRESSION: * A 1.2 cm nonenhancing abnormality into the right neural foramen at thelevel of L2-L3 is in favor of a extruded disc material. * No other abnormal enhancing pathology is identified. Finalized by Gael Chiang MD on 12/29/2023 7:57 PM us Shaikh Betty MARSHALL IMG MRI PROCEDURES Final Result * MR lumbar spine wo contrast (12/19/2023 10:54 AM EST) Anatomical Region Laterality Modality Spine, L-spine Magnetic Resonan ce 12/19/2023 10:5 4 AM EST Narrative 12/19/2023 10:52 AM EST THIS EXAM WAS PERFORMED AT [facility] CLINICAL INFORMATION: Chronic right-sided low back pain with right-sided sciatica TECHNIQUE: MR LUMBAR SPINE WO CONT Multisequence multiplanar imaging of the lumbar spine was obtained utilizing the routine lumbar protocol. Endplates are intact without compression. Conus tip is at the L1 level without cord signal characteristic abnormality. There is incidental T12 vertebral body hemangioma. Small hemangioma also noted at L2. Posterior elements appear intact. No abnormality of the cauda equina. At the L2-3 level there is a well-circumscribed 1.2 cm mass at the right exiting neural foramina which produces mass effect upon the right elbow II nerve root. This shows intermediate signal on T1-weighted sequences with relatively hypointense signal on T2-weighted sequences. Mild increased signal present on inversion recovery. This does not clearly represent a disc herniation. Contrast-enhanced imaging recommended for further evaluation. Mild lumbar degenerative changes noted without other evidence of significant central canal or neural foraminal stenosis. No significant paravertebral soft tissue signal characteristic abnormality. IMPRESSION: 1.2 cm mass at the right L2-3 neural foramina producing mass effect upon the right L2 nerve root. Although this may represent a free disc fragment, the appearance is unusual. Contrast-enhanced MRI recommended as other entities such as meningioma and neurofibroma (among others) could produce this appearance. Finalized by Rashawn Espinoza MD on 12/19/2023 10:52 AM Procedure Note Radiology, Radiologist, - 12/19/2023 THIS EXAM WAS PERFORMED AT [facility] CLINICAL INFORMATION: Chronic right-sided low back pain with right-sided sciatica TECHNIQUE: MR LUMBAR SPINE WO CONT Multisequence multiplanar imaging of the lumbar spine was obtainedutilizing the routine lumbar protocol. Endplates are intact withoutcompression. Conus tip is at the L1 level without cord signalcharacteristic abnormality. There is incidental T12 vertebral bodyhemangioma. Small hemangioma also noted at L2. Posterior elements appear intact. No abnormality ofthe cauda equina. At the L2-3 level there is a well-circumscribed 1.2 cmmass at the right exiting neural foramina which produces mass effect uponthe right elbow II nerve root. This shows intermediate signal onT1-weighted sequences with relatively hypointense signal on T2-weighted sequences.Mild increased signal present on inversion recovery. This does notclearly represent a disc herniation. Contrast-enhanced imagingrecommended for further evaluation. Mild lumbar degenerative changesnoted without other evidence of significant central canal or neural foraminal stenosis. Nosignificant paravertebral soft tissue signal characteristic abnormality. IMPRESSION: 1.2 cm mass at the right L2-3 neural foramina producing mass effect uponthe right L2 nerve root. Although this may represent a free discfragment, the appearance is unusual. Contrast-enhanced MRI recommended asother entities such as meningioma and neurofibroma (among others) couldproduce this appearance. Finalized by Rashawn Espinoza MD on 12/19/2023 10:52 AM Shaikh Betty [facility] IMG MRI PROCEDURES Final Result documented in this encounter Visit Diagnoses Not on filedocumented in this encounter Additional Health Concerns Assessment Noted Time PHQ-9 Depression Total Score: 1 10/23/20 23 4:00 PM EST documented as of this encounter Care Teams Lead Programmer Relationship Specialty Start Date End Date Shaikh Hernández MD [address] [place] [address] PCP - General Internal Medicine 12/04/23 07/15/24 Juan José Giron MD [address] [place] [address] PCP - General Family Medicine 07/16/24 Kaci Hanna, WILL-S [address] [place], [place] [phone] Supervisory It Specialist Behavioral Health 03/28/23 Deepti Delong NP [address] [place] [phone] Nurse Practitioner Family Medicine 07/16/24 Yue Carter APRN-MORPHOLOGIST [address] [address] [place] [address] Nurse Practitioner Psychiatry 11/22/24 documented as of this encounter
--- OUTSIDE RECORDS SUMMARY | 2025-05-08 12:29 | XMS_ITS | Encounter Summary ---
Author Organization [facility] Address [address] [facility] [place] [address] Care Team Providers Care Wing Commander Name Role Phone Shaikh ROLANDO Hernández Primary Care Provider [phone] Kaci HannaW-S Unavailable [phone] Shaikh ROLANDO Hernández Primary Care Provider [phone] Juan José Giron MD Primary Care Provider [phone] Deepti Delong THERAPEUTIC ACTIVITIES SERVICES WORKER Unavailable [phone] Daisy-Yue Vidal MARKETING MANAGER HEALTH COMMUNICATIONS-DELI COOK Unavailable Encounter Details Date Type Department Care Team (Late st Contact Info) Description 06/01/2023 Abstract [facility] R [address] [place] [address] Kaci Hanna, WHEEL TRUING MACHINE TENDER-S [address] [place] [address] Social History Tobacco Use Types Packs/Day Years Used Date Smoking Tobacco: Former Cigarettes Smokeless Tobacco: Never Tobacco Cessation:Counseling Given: Not Answered Alcohol Use Standard Drinks/Week Comments Not Currently 0 (1 standard drink = 0.6 oz pur e alcohol) caffeine: none PHQ-2 Answer Date Recorded Patient Health Questionnaire-2 Score 0 05/24/2023 Education Answer Date Recorded What is the [...] Social Work [facility] BH [address] [place] [facility] [address] Kaci Hanna, WILL-S [address] [facility] [place] [address] 05/13/2025 1:30 PM EDT Office Visit [facility] [address] [facility] [place] [address] Quan Mccoy, PA [address] [facility] 150 [place] [address] 05/14/2025 9:00 AM EDT Office Visit [facility] CI BH [address] [facility] 160 [place] [address] Daisy-Yue Vidal, MARKETING MANAGER HEALTH COMMUNICATIONS-DELI COOK [address] [facility] 160 [place] [address] 06/03/2025 10:00 AM EDT Office Visit [facility] CWM FM [address] [place] [address] Monserrat Bell NP [address] [place] [address] 06/12/2025 3:00 PM EDT Office Visit [facility] [address] [facility] [place] [address] Jose Haile, MARÍA [address] [facility] [place], [place] [address] 07/03/2025 8:00 AM EDT Office Visit NOMS [address] [place] [address] Yayo Tierney, DO [address] [facility] [place] [address] 05/12/2026 9:00 AM EDT Office Visit [facility] BCP OB [address] [facility] [place] [address] Yayo Tierney, DO [address] [facility] [address] [place], [place] [address] documented as of this encounter Visit Diagnoses Not on filedocumented in this encounter Care Teams Wing Commander Relationship Specialty Start Date End Date Shaikh Hernández MD PCP - General Internal Medicine 03/28/23 12/03/23 Shaikh Hernández MD [address] [place] [address] PCP - General Internal Medicine 12/04/23 07/15/24 Juan José Giron MD [address] [place] [address] PCP - General Family Medicine 07/16/24 Kaci Hanna, NUBIA [address] [facility] [place] [address] Home Office Claims Examiner Behavioral Health 03/28/23 Deepti Delong NP [address] [place] [address] Nurse Practitioner Family Medicine 07/16/24 Yue Carter APRN-DELI COOK [address], [place] [address] Nurse Practitioner Psychiatry 11/22/24 documented as of this encounter
--- OUTSIDE RECORDS SUMMARY | 2025-05-08 12:29 | XMS_ITS | Continuity of Care Document ---
Author Organization Formerly [facility] Address [address] [place] [address] Problems Unknown Problems Results Test Result Date/Time Value / Unit Interp. Refere nce Range SARS-CoV-2 (COVID-19), RT-PC R/TMA[[id number]] Collected: 08/24/2021 02:53 PM Specimen Received: 08/25/2021 05:32 PM Source: [facility] SARS-CoV-2 INTERPRETATION [[id number]] 08/25/2021 10:59 PM Negative See Note SARS-CoV-2 RNA NOT DETECTEDN egative results do not preclude SARS-CoV-2 infection and should notbe used as the sole basis for patient management decisions. Negativeresults must be combined with clinical observations, patient history,and epidemiological information. Optimum specimen types and timingfor peak viral levels during infections caused by SARS-CoV-2 have notbeen determined. Collection of multiple specimens or types ofspecimens may be necessary to detect virus. Improper specimencollection and handling, sequence variability under primers/probes,or organism present below the limit of detection may lead to falsenegative results. Positive and negative predictive values oftesting are highly dependent on prevalence. False negative testresults are more likely when prevalence is high. SOURCE [[id number]] 08/25/2021 10:59 PM NOT SPECIFIED Note: Methodology is Billy [employer] Real-Time RT-PCR. The expected result or reference range is NEGATIVE (Not Detected). For more information regarding COVID-19 testing to include clinicalinformation, methodology detail, intended use, FDA authorization andrecommended fact sheets for patients or healthcare providers, see NewMessageMe Announcement: SARS-CoV-2 (COVID-19) by NAAT at URL below (note,fact sheets are provided by method given in report:[email or web address]/ Alternatively, see downloadable PDF fact sheet at:[email or web address] Allergies, adverse reactions, alerts No known allergies and adverse reactions Medications No administered medications reported Vital Signs No vital signs reported Social History No smoking Hx information available
--- OUTSIDE RECORDS SUMMARY | 2025-05-08 12:29 | XMS_ITS | Encounter Summary ---
Author Organization [facility] Address [address] [place] [address] Care Team Providers Care Wood Lather Name Role Phone Cyndi Kaci Rios MACHINING SUPERVISOR-S Unavailable [phone] Juan José Giron MD Primary Care Provider [phone] Deepti Delong EVP CHIEF EXPLORATION OFFICER Unavailable [phone] Yue Carter ENGAGEMENT DIRECTOR-GAS PLANT WORKER Unavailable Reason for Visit * Reason Comments Med Refill Encounter Details Date Type Department Care Team (Late st Contact Info) Description 04/27/2025 Refill [facility] BCP OB [address] [place] [address] Yayo Tierney, DO [address] [place], [facility]11 H/O: hysterectomy Social History Tobacco Use Types Packs/Day Years [...] EDT Social Work [facility]NR [address] [place] [address] Kaci Hanna, WILL-S [address] [place] [facility] [place] [address] 05/13/2025 1:30 PM EDT Office Visit [facility] [address] [facility] [place] [address] Quan Mccoy, PA [address] [facility] 150 [place] [address] 05/14/2025 9:00 AM EDT Office Visit [facility] [address] [facility] 160 [place] [address] Yue Carter, ENGAGEMENT DIRECTOR-[facility] [address] [facility] 160 [place] [address] 06/03/2025 10:00 AM EDT Office Visit [facility] CWM FM [address] [place] [address] Monserrat Bell NP [address] [place] [address] 06/12/2025 3:00 PM EDT Office Visit [facility] [address] [facility] [place] [address] Jose Haile NP [address] [place] [address] 07/03/2025 8:00 AM EDT Office Visit [facility] BCP OB [address] [facility] [place] [address] Yayo Tierney, DO [address] [facility] [place] [address] 05/12/2026 9:00 AM EDT Office Visit [facility] OB [address] [facility] [place] [address] Yayo Tierney, DO [address] [facility] [address] [place], [place] [address] documented as of this encounter Visit Diagnoses Diagnosis H/O: hysterectomy Acquired absence of both cervix and uterus documented in this encounter Additional Health Concerns Assessment Noted Time PHQ-9 Depression Total Score: 0 01/22/20 25 10:59 AM EDT documented as of this encounter Care Teams Wood Lather Relationship Specialty Start Date End Date Juan José Giron MD [address] [place] [address] PCP - General Family Medicine 07/16/24 Kaci Hanna, AMANS [address] [facility] [place] [address] Artificial Foliage Arranger Behavioral Health 03/28/23 Deepti Delong NP [address] [place] [address] Nurse Practitioner Family Medicine 07/16/24 Yue Carter APRN-GAS PLANT WORKER [address] [place] [address] Nurse Practitioner Psychiatry 11/22/24 documented as of this encounter
--- OUTSIDE RECORDS SUMMARY | 2025-05-08 12:29 | XMS_ITS | Encounter Summary ---
Author Organization [facility] Address [address] [place] [address] Care Team Providers Care Financial Reserve Clerk Name Role Phone Shaikh ROLANDO Hernández Primary Care Provider [phone] Kaci Hanna COMPOUNDER [employer]-S Unavailable [phone] Shaikh ROLANDO Hernández Primary Care Provider [phone] Juan José Giron MD Primary Care Provider [phone] Deepti Delong NP Unavailable [phone] Yue Carter ENERGY SYSTEMS LABORATORY DIRECTOR-CLIP COATER Unavailable Reason for Visit * Reason Comments Med Refill Encounter Details Date Type Department Care Team ([facility] Contact Info) Description 04/30/[address] [facility] [address] [facility] 160 [place] [address] Yue Carter, ENERGY SYSTEMS LABORATORY DIRECTOR-CLIP COATER [address] [facility] 160 [place] [address] Generalized anxiety disorder Social History Tobacco Use Types Packs/Day Years Used Date Smoking Tobacco: Former Cigarettes Smokeless Tobacco: Never Alcohol Use Standard Drinks/Week Comments Yes 0 (1 standard drink = 0.6 oz pur e alcohol) PHQ-2 Answer Date Recorded Patient Health Questionnaire-2 Score 2 04/04/2023 Education Answer Date Recorded What is the [...] Social Work [facility] FNR BH [address] [place] [address] Kaci Hanna LISW-S [address] [place] [address] 05/13/2025 1:30 PM EDT Office Visit [facility] 6[address] [place] [address] Quan Mccoy PA [address] [facility] 150 [place] [address] 05/14/2025 9:00 AM EDT Office Visit NOMS [facility] [address] [facility] 160 [place] [address] Daisy-Yue Vidal, ENERGY SYSTEMS LABORATORY DIRECTOR-CLIP COATER [address] [place] [facility] 160 [place] [address] 06/03/2025 10:00 AM EDT Office Visit [facility] FM [address] [place] [address] Monserrat Bell NP [address] [place] [address] 06/12/2025 3:00 PM EDT Office Visit [facility] 629 [place] [address] Jose Haile NP [address] [place] [address] 07/03/2025 8:00 AM EDT Office Visit [facility] BCP OB [address] [place] [address] [place] [address] Yayo Tierney, DO [address] [facility] [place] [address] 05/12/2026 9:00 AM EDT Office Visit [facility] OB [address] [facility] [place] [address] Yayo Tierney, DO [address] [facility] [place] [address] documented as of this encounter Visit Diagnoses Diagnosis Generalized anxiety disorder Generalized anxiety disorder documented in this encounter Care Teams Financial Reserve Clerk Relationship Specialty Start Date End Date Shaikh Hernández MD PCP - General Internal Medicine 03/28/23 12/03/23 Shaikh Hernández MD [address] [place] [address] PCP - General Internal Medicine 12/04/23 07/15/24 Juan José Giron MD [address] [place] [address] PCP - General Family Medicine 07/16/24 Kaci Hanna, WILL-S [address] [place] [address] Turbine Attendant Behavioral Health 03/28/23 Deepti Delong NP [address] [place] [address] Nurse Practitioner Family Medicine 07/16/24 Yue Carter, CAIN-CLIP COATER [address] [address] Nurse Practitioner Psychiatry 11/22/24 documented as of this encounter
--- OUTSIDE RECORDS SUMMARY | 2025-05-08 12:29 | XMS_ITS | Encounter Summary ---
Author Organization [facility] Address [address] [place] [address] Care Team Providers Care Stamp Presser Name Role Phone Kaci HannaW-S Unavailable Shaikh ROLANDO Hernández Primary Care Provider [phone] Juan José Giron MD Primary Care Provider [phone] Deepti Delong GRID OPERATOR Unavailable [phone] Daisy-Yue Vidal KINESIOLOGY INTERNSHIP-QUANTITATIVE RESEARCH ANALYST Unavailable Encounter Details Date Type Department Care Team (Late st Contact Info) Description 01/11/2024 [facility] [address] [place] [address] Shaikh Hernández MD [address] [place] [address] Social History Tobacco Use Types Packs/Day Years [...] EDT Social Work [facility] FNR [address] [place] [address] Kaci Hanna, WILL-Gabriel [address] [place], [place] [address] 05/13/2025 1:30 PM EDT Office Visit [facility] 629 [place] [address] Quan Mccoy, PA [address] [facility] 150 [place] [address] 05/14/2025 9:00 AM EDT Office Visit [facility] [address] [facility] 160 [place] [address] Yue Carter, KINESIOLOGY INTERNSHIP-[facility] [address] [facility] 160 [place] [address] 06/03/2025 10:00 AM EDT Office Visit [facility] C[facility] FM [address] [place] [address] Monserrat Bell NP [address] [place] [address] 06/12/2025 3:00 PM EDT Office Visit [facility] 6[address] [place] [address] Jose Haile, GRID OPERATOR [address] [place] [address] 07/03/2025 8:00 AM EDT Office Visit [facility] OB [address] [facility] [place] [address] Yayo Tierney, DO [address] [facility] [place] [address] 05/12/2026 9:00 AM EDT Office Visit [facility] OB [address] [facility] [place] [address] Yayo Tierney, DO [address] [facility] [place] [address] documented as of this encounter Procedures Procedure Name Priority Date/Time Associated Diagnosis Comments MR LUMBAR SPINE W CONTRAST Routine 01/01/2024 1:37 PM EST documented in this encounter Results * MR lumbar spine w contrast (01/01/2024 1:37 PM EST) Anatomical Region Laterality Modality Spine, L-spine Magnetic Resonan ce Shaikh Betty MARSHALL IMG MRI PROCEDURES Final Result documented in this encounter Visit Diagnoses Not on filedocumented in this encounter Additional Health Concerns Assessment Noted Time PHQ-9 Depression Total Score: 1 10/23/20 23 4:00 PM EST documented as of this encounter Care Teams Stamp Presser Relationship Specialty Start Date End Date Shaikh Hernández MD [address] [place] [address] PCP - General Internal Medicine 12/04/23 07/15/24 Juan José Giron MD [address] [place] [address] PCP - General Family Medicine 07/16/24 Kaci Hanna LISW-S [address] [place] [address] Geological Specialist Behavioral Health 03/28/23 Deepti Delong NP [address] [place] [address] Nurse Practitioner Family Medicine 07/16/24 Yue Carter, KINESIOLOGY INTERNSHIP-QUANTITATIVE RESEARCH ANALYST [address] [place] [address] Nurse Practitioner Psychiatry 11/22/24 documented as of this encounter
--- OUTSIDE RECORDS SUMMARY | 2025-05-08 12:29 | XMS_ITS | Encounter Summary ---
Author Organization [facility] Address [address] [place] [address] Care Team Providers Care Swift Tender Name Role Phone Shaikh ROLANDO Hernández Primary Care Provider [phone] Kaci Hanna BOTTOM BLEACHER-S Unavailable [phone] Shaikh ROLANDO Hernández Primary Care Provider [phone] Juan José Giron MD Primary Care Provider [phone] Deepti Delong NP Unavailable [phone] Yue Carter DAYCARE DIRECTOR-MEDICAL AIDE Unavailable Reason for Visit * Reason Comments Med Change Request Encounter Details Date Type Department Care Team ([facility] Contact Info) Description 08/30/2023 Refill [facility] CI BH [address] [facility] 160 [place] [address] Yue Carter, [facility]-MEDICAL AIDE [address] [facility] 160 [place], [place] [address] VIRAL (generalized anxiety disorder) Social History Tobacco Use Types Packs/Day Years Used Date Smoking Tobacco: Former Cigarettes Smokeless Tobacco: Never Alcohol Use Standard Drinks/Week Comments Not Currently 0 (1 standard drink = 0.6 oz pure alcohol) caffeine:1-2 cups coffee and green tea PHQ-2 Answer Date Recorded Patient Health Questionnaire-2 Score 0 08/30/2023 Education Answer Date Recorded What is the [...] on file documented as of this encounter Functional Status * Over the past 2 weeks, how often have you been bothered by any of the following problems? Question Answer Date of Assessment Author Little interest or pleasure in doing things Not at all 08/30/2023 11:38 AM EDT Rosa Maria Ayala L PN Feeling down, depressed, or hopeless Not at all 08/30/2023 11:38 AM EDT Rosa Maria Ayala L PN Patient Health Questionnaire -2 Score 0 08/30/2023 11:38 AM EDT Rosa Maria Ayala L PN documented as of this encounter Miscellaneous Notes * Telephone Encounter - Rosa Maria Ayala LPN - 08/30/2023 1:19 PM EDT Patient is tapering off Zoloft documented in this encounter Plan of Treatment Upcoming Encounters Date Type Department Care Team (Late st Contact Info) Description 05/12/2025 8:00 AM EDT Social Work [facility] FNR [address] [place] [address] Kaci Hanna, BOTTOM BLEACHER-S [address] [place] [address] 05/13/2025 1:30 PM EDT Office Visit [facility] 6[address] [place] [address] Quan Mccoy, DENIA [address] [facility] 150 [place] [address] 05/14/2025 9:00 AM EDT Office Visit N[facility] [address] 160 [place] [address] Yue Carter, DAYCARE DIRECTOR-MEDICAL AIDE [address] [place] [address] 06/03/2025 10:00 AM EDT Office Visit [facility] FM [address] [place] [address] Monserrat Bell NP [address] [place] [address] 06/12/2025 3:00 PM EDT Office Visit [facility] [address] [place] [address] Jose Haile NP [address] [place], [place] [address] 07/03/2025 8:00 AM EDT Office Visit [facility] OB [address] [place] [address] Yayo Tierney, [facility] [place] [address] 05/12/2026 9:00 AM EDT Office Visit [facility] OB [address] [facility] [place] [address] Yayo Tierney, [facility] [address] [place], [place] [address] documented as of this encounter Visit Diagnoses Diagnosis VIRAL (generalized anxiety disorder) Generalized anxiety disorder documented in this encounter Care Teams Swift Tender Relationship Specialty Start Date End Date Shaikh Hernández MD PCP - General Internal Medicine 03/28/23 12/03/23 Shaikh Hernández MD [address] [place] [address] PCP - General Internal Medicine 12/04/23 07/15/24 Juan José Giron MD [address] [place] [address] PCP - General Family Medicine 07/16/24 Kaci Hanna, AMANS [address] [place], [place] [address] Radio Message Router Behavioral Health 03/28/23 Deepti Delong NP [address] [place] [address] Nurse Practitioner Family Medicine 07/16/24 Yue Carter APRN-MEDICAL AIDE [address] [address] [place] [address] Nurse Practitioner Psychiatry 11/22/24 documented as of this encounter
--- OUTSIDE RECORDS SUMMARY | 2025-05-08 12:29 | XMS_ITS | Encounter Summary ---
Author Organization [facility] Address [address] [place] [address] Care Team Providers Care Machine Or Machinery Mechanic Name Role Phone Shaikh ROLANDO Hernández Primary Care Provider [phone] Kaci Hanna BRICK LAYER-S Unavailable [phone] Shaikh ROLANDO Hernández Primary Care Provider [phone] Juan José Giron MD Primary Care Provider [phone] Deepti Delong NP Unavailable [phone] Yue Carter COMPLIANCE CLERK-MONEY MARKET CLERK Unavailable Reason for Visit * Reason Comments Med Refill Encounter Details Date Type Department Care Team ([facility] Contact Info) Description 04/06/2023 Refill [facility] [address] [facility] 160 [place] [address] Yue Carter, COMPLIANCE CLERK-MONEY MARKET CLERK [address] [facility] 160 [place], [place] [address] Other insomnia Social History Tobacco Use Types Packs/Day Years Used Date Smoking Tobacco: Former Cigarettes Smokeless Tobacco: Never Alcohol Use Standard Drinks/Week Comments Not Currently 0 (1 standard drink = 0.6 oz pur e alcohol) PHQ-2 Answer Date Recorded Patient Health Questionnaire-2 Score 2 04/04/2023 Comments Unknown Sex and Gender Information Value Date Recorded Sex Assigned at Not on file Legal Sex Female 7:36 PM EDT Gender Identity Not on file Sexual Orientation Not on file documented as of this encounter Plan of Treatment Upcoming Encounters Date Type Department Care Team (Late st Contact Info) Description 05/12/2025 8:00 AM EDT Social Work [facility]NR [address] [place] [address] Kaci Hanna S, BRICK LAYER-S [address] [place] [address] 05/13/2025 1:30 PM EDT Office Visit [facility] [address] [facility] [address] Quan Mccoy, PA [address] [facility] 150 [place] [address] 05/14/2025 9:00 AM EDT Office Visit [facility] [address] [facility] 160 [place] [address] Yue Carter, [facility] [address] [facility] 160 [place] [address] 06/03/2025 10:00 AM EDT Office Visit [facility] [address] [place] [address] Monserrat Bell NP [address] [place] [address] 06/12/2025 3:00 PM EDT Office Visit [facility] [address] [facility] [facility] [address] Jose Haile, MACHINE BUILDER [address] [facility] [address] 07/03/2025 8:00 AM EDT Office Visit [facility] OB [address] [place] [address] Yayo Tierney DO [address] [place] [address] 05/12/2026 9:00 AM EDT Office Visit [facility] BCP OB [address] [place] [address] Yayo Tierney DO [address] [facility] [place] [address] documented as of this encounter Visit Diagnoses Diagnosis Other insomnia documented in this encounter Care Teams Machine Or Machinery Mechanic Relationship Specialty Start Date End Date Shaikh Hernández MD PCP - General Internal Medicine 03/28/23 12/03/23 Shaikh Hernández MD [address] [place] [address] PCP - General Internal Medicine 12/04/23 07/15/24 Juan José Giron MD [address] [place] [address] PCP - General Family Medicine 07/16/24 Kaci Hanna LISW-S [address] [place] [address] Manager Pet Behavioral Health 03/28/23 Deepti Delong NP [address] [place] [address] Nurse Practitioner Family Medicine 07/16/24 Yue Carter APRN-MONEY MARKET CLERK [address] [place] [place] [address] Nurse Practitioner Psychiatry 11/22/24 documented as of this encounter
--- OUTSIDE RECORDS SUMMARY | 2025-05-08 12:29 | XMS_ITS | Encounter Summary ---
Author Organization [facility] Address [address] [facility] [place] [address] Care Team Providers Care Rigging Worker Name Role Phone Kaci HannaGabriel Unavailable [phone] Shaikh ROLANDO Hernández Primary Care Provider [phone] Juan José Giron MD Primary Care Provider [phone] Deepti Delong NP Unavailable [phone] uYe Carter VISUAL DISPLAY ASSOCIATE-LEAD JAVASCRIPT ENGINEER Unavailable Reason for Visit * Reason Comments Med Refill Encounter Details Date Type Department Care Team (Late st Contact Info) Description 06/01/2024 Refill [facility] [address] [facility] 160 [place] [address] Yue Carter, VISUAL DISPLAY ASSOCIATE-LEAD JAVASCRIPT ENGINEER [address] [facility] 160 [place] [address] Other insomnia Social History Tobacco Use Types [...] Date Recorded Patient Health Questionnaire-2 Score 0 04/30/2024 Education Answer Date Recorded What is the [...] Social Work [facility] [address] [place] [address] Kaci Hanna LISW-Gabriel [address] [place] [address] 05/13/2025 1:30 PM EDT Office Visit [facility] [address] [place] [address] Quan Mccoy, PA [address] [facility] 150 [place] [address] 05/14/2025 9:00 AM EDT Office Visit [facility] [address] [facility] 160 [place] [address] Yue Carter, VISUAL DISPLAY [facility] [address] [facility] 160 [place] [address] 06/03/2025 10:00 AM EDT Office Visit [facility] [address] [place] [address] Monserrat Bell NP [address] [place] [address] 06/12/2025 3:00 PM EDT Office Visit [facility] [address] [place] [address] Jose Haile, MARÍA [address] [place] [address] 07/03/2025 8:00 AM EDT Office Visit [facility] OB [address] [facility] [place] [address] Yayo Tierney, DO [address] [facility] [address] [place], [place] [address] 05/12/2026 9:00 AM EDT Office Visit [facility] [address] [facility] [place] [address] Yayo Tierney, DO [address] [facility] [place] [address] documented as of this encounter Visit Diagnoses Diagnosis Other insomnia documented in this encounter Additional Health Concerns Assessment Noted Time PHQ-9 Depression Total Score: 1 10/23/20 4:00 PM EST documented as of this encounter Care Teams Rigging Worker Relationship Specialty Start Date End Date Shaikh Hernández MD [address] [place] [address] PCP - General Internal Medicine 12/04/23 07/15/24 Juan José Giron MD [address] [place] [address] PCP - General Family Medicine 07/16/24 Kaci Hanna LISW-S [address] [place], [place] [address] Family Law Legal Assistant Behavioral Health 03/28/23 Deepti Delong NP [address] [place] [address] Nurse Practitioner Family Medicine 07/16/24 Yue Carter, VISUAL DISPLAY ASSOCIATE-LEAD JAVASCRIPT ENGINEER 112 [place] [address] Nurse Practitioner Psychiatry 11/22/24 documented as of this encounter
--- OUTSIDE RECORDS SUMMARY | 2025-05-08 12:29 | XMS_ITS | Encounter Summary ---
Author Organization [facility] Address [address] [facility] [place] [address] Care Team Providers Care Segment Producer Name Role Phone Kaci HannaGabriel Unavailable [phone] Shaikh ROLANDO Hernández Primary Care Provider [phone] Juan José Giron MD Primary Care Provider [phone] Deepti Delong ROLLER STITCHER Unavailable [phone] Yue Carter LINING SEWER-SINGER SONGWRITER Unavailable Reason for Visit * Reason Comments Med Refill Encounter Details Date Type Department Care Team (Late st Contact Info) Description 04/27/2024 Refill [facility] [address] [facility] 160 [place] [address] Yue Carter, LINING SEWER-SINGER SONGWRITER [address] [facility] 160 [place] [address] Bipolar II disorder, most recent episode major depressive (HCC) Social History Tobacco Use Types Packs/Day Years [...] pleasure in doing things Not at all 04/30/2024 9:03 AM EDT Rosa Maria Ayala LP N Feeling down, depressed, or hopeless Not at all 04/30/2024 9:03 AM EDT Rosa Maria Ayala LP N Patient Health Questionnaire -2 Score 0 04/30/2024 9:03 AM EDT Rosa Maria Ayala LP N documented as of this encounter Miscellaneous Notes * Telephone Encounter - Rosa Maria Ayala LPN - 04/29/2024 9:32 AM EDT documented in this encounter Plan of Treatment Upcoming Encounters Date Type Department Care Team (Late st Contact Info) Description 05/12/2025 8:00 AM EDT Social Work [facility] [address] [place] [address] Kaci Hanna, WILL-S [address] [place] [address] 05/13/2025 1:30 PM EDT Office Visit [facility] [address] [place] [address] Quan Mccoy PA [address] [facility] 150 [place] [address] 05/14/2025 9:00 AM EDT Office Visit [facility] CI BH [address] [facility] 160 [place] [address] DaisyKeithYue Vidal, LINING SEWER-[facility] 112 [facility] 160 [place] [address] 06/03/2025 10:00 AM EDT Office Visit [facility] [address] [place] [address] Monserrat Bell, MARÍA [address] [place] [address] 06/12/2025 3:00 PM EDT Office Visit [facility] [address] [place] [address] Jose Haile, MARÍA [address] [place], [place] [address] 07/03/2025 8:00 AM EDT Office Visit [facility] OB [address] [place] [address] Yayo Tierney [address] [place], [place] [address] 05/12/2026 9:00 AM EDT Office Visit [facility] [address] [place] [address] Yayo Tierney [address] [place], [place] [address] documented as of this encounter Visit Diagnoses Diagnosis Bipolar II disorder, most recent episode major depressive (HCC) Other bipolar disorders documented in this encounter Additional Health Concerns Assessment Noted Time PHQ-9 Depression Total Score: 1 10/23/ 23 4:00 PM EST documented as of this encounter Care Teams Segment Producer Relationship Specialty Start Date End Date Shaikh Hernández MD [address] [place] [address] PCP - General Internal Medicine 12/04/23 07/15/24 Juan José Giron MD [address] [place] [address] PCP - General Family Medicine 07/16/24 Kaci Hanna, WILL-S [address] [place] [address] Beater Worker Helper Behavioral Health 03/28/23 Deepti Delong NP [address] [place] [address] Nurse Practitioner Family Medicine 07/16/24 Yue Carter, LINING SEWER-SINGER SONGWRITER [address] [facility] 160 [place] [address] Nurse Practitioner Psychiatry 11/22/24 documented as of this encounter
--- OUTSIDE RECORDS SUMMARY | 2025-05-08 12:29 | XMS_ITS | Encounter Summary ---
Author Organization [facility] Address [address] [place] [address] Care Team Providers Care Group Leader Wafer Polishing Name Role Phone Shaikh ROLANDO Hernández Primary Care Provider [phone] Kaci Hanna ENDLESS STEAMER TENDER-S Unavailable [phone] Shaikh ROLANDO Hernández Primary Care Provider [phone] Juan José Giron MD Primary Care Provider [phone] Deepti Delong NP Unavailable [phone] Yue Carter TRANSFER SPECIALIST-SUPERVISOR PHOTOENGRAVING Unavailable Reason for Visit * Reason Comments Med Refill Encounter Details Date Type Department Care Team ([facility] [address] Contact Info) Description 06/23/2023 Refill N[facility] [address] [facility] 160 [place] [address] Yue Carter, [facility]-SUPERVISOR PHOTOENGRAVING [address] [facility] 160 [place], [place] [address] Other insomnia; VIRAL (generalized anxiety disorder) Social History Tobacco [...] Social Work [facility] [address] [place] [address] Kaci Hanna, ENDLESS STEAMER TENDER-S [address] [place] [address] 05/13/2025 1:30 PM EDT Office Visit [facility] 6[address] [place] [address] Quan Mccoy, PA [address] [facility] 150 [place] [address] 05/14/2025 9:00 AM EDT Office Visit [facility] CI [address] [facility] 160 [place] [address] Daisy-Yue Vidal, TRANSFER SPECIALIST-[facility] [address] [facility] 160 [place] [address] 06/03/2025 10:00 AM EDT Office Visit [facility] [address] [place] [address] Monserrat Bell NP [address] [place] [address] 06/12/2025 3:00 PM EDT Office Visit [facility] [address] [facility] [place] [address] Jose Haile, MARÍA 629 [place] [address] 07/03/2025 8:00 AM EDT Office Visit [facility] OB [address] [facility] [place] [address] Yayo Tierney, [address] [place], [place] [address] 05/12/2026 9:00 AM EDT Office Visit [facility] OB [address] [facility] [place] [address] Yayo Tierney, [address] [place], [place] [address] documented as of this encounter Visit Diagnoses Diagnosis Other insomnia VIRAL (generalized anxiety disorder) Generalized anxiety disorder documented in this encounter Care Teams Group Leader Wafer Polishing Relationship Specialty Start Date End Date Shaikh Hernández MD PCP - General Internal Medicine 03/28/23 12/03/23 Shaikh Hernández MD [address] [place] [address] PCP - General Internal Medicine 12/04/23 07/15/24 Juan José Giron MD [address] [place] [address] PCP - General Family Medicine 07/16/24 Kaci Hanna LISW-S [address] [facility] [place] [address] Cold Roll Operator Behavioral Health 03/28/23 Deepti Delong NP [address] [place] [address] Nurse Practitioner Family Medicine 07/16/24 Yue Carter APRN-SUPERVISOR PHOTOENGRAVING [address] [address] Nurse Practitioner Psychiatry 11/22/24 documented as of this encounter
--- OUTSIDE RECORDS SUMMARY | 2025-05-08 12:29 | XMS_ITS | Encounter Summary ---
Author Organization [facility] Address [address] [place] [address] Care Team Providers Care Audiology Director Name Role Phone Kaci HannaW-S Unavailable [phone] Shaikh ROLANDO Hernández Primary Care Provider [phone] Juan José Giron MD Primary Care Provider [phone] Deepti Delong GARDEN CENTER MANAGER Unavailable [phone] Daisy-Yue Vidal CONCRETE FINISHER APPRENTICE-HIGHWAY SAFETY ENGINEER Unavailable Encounter Details Date Type Department Care Team (Late st Contact Info) Description 01/04/2024 Orders Only [facility] [address] [place] [address] Shaikh Hernández MD [address] [place] [address] Social History Tobacco Use Types [...] pleasure in doing things Not at all 01/04/2024 9:12 AM Diann Dey M A Feeling down, depressed, or hopeless Not at all 01/04/2024 9:12 AM Diann Dey M A Patient Health Questionnaire -2 Score 0 01/04/2024 9:12 AM Diann Dey M A documented as of this encounter Plan of Treatment Upcoming Encounters Date Type Department Care Team (Late st Contact Info) Description 05/12/2025 8:00 AM EDT Social Work [facility] [address] [place] [address] Kaci Hanna S, SLEEVE TAILOR-S [address] [place] [address] 05/13/2025 1:30 PM EDT Office Visit [facility] 629 [place] [address] Quan Mccoy, DENIA [address] [facility] 150 [place] [address] 05/14/2025 9:00 AM EDT Office Visit [facility] BH [address] [facility] 160 [place] [address] Yue Carter, CONCRETE FINISHER [facility] [address] [facility] 160 [place] [address] 06/03/2025 10:00 AM EDT Office Visit [facility] [address] [place] [address] Monserrat Bell NP [address] [place] [address] 06/12/2025 3:00 PM EDT Office Visit [facility] [address] [place] [address] Jose Haile NP 6[address] [facility], [place] [address] 07/03/2025 8:00 AM EDT Office Visit [facility] OB [address] [facility] [place] [address] Yayo Tierney, [address] [place] [address] 05/12/2026 9:00 AM EDT Office Visit [facility] OB [address] [place] [address] [place] [address] [place] [address] documented as of this encounter Procedures Procedure Name Priority Date/Time Associated Diagnosis Comments MRI SPINE LUMBAR W/ + W/O CONTRAST Routine 12/19/2023 3:23 PM EST documented in this encounter Results * MRI SPINE LUMBAR W/ + W/O CONTRAST (12/19/2023 3:23 PM EST) Anatomical Region Laterality Modality Radiographic Roberta ging us Shaikh Betty MARSHALL IMG XR PROCEDURES Final Result documented in this encounter Visit Diagnoses Not on filedocumented in this encounter Additional Health Concerns Assessment Noted Time PHQ-9 Depression Total Score: 1 10/23/20 23 4:00 PM EST documented as of this encounter Care Teams Audiology Director Relationship Specialty Start Date End Date Shaikh Hernández MD [address] [place] [address] PCP - General Internal Medicine 12/04/23 07/15/24 Juan José Giron MD [address] [place] [address] PCP - General Family Medicine 07/16/24 Kaci Hanna, AMANS [address] [place], [place] [address] Assembly Line Worker Behavioral Health 03/28/23 Deepti Delong NP [address] [place] [address] Nurse Practitioner Family Medicine 07/16/24 Yue Carter APRN-HIGHWAY SAFETY ENGINEER [address] [place] [address] [place] [address] Nurse Practitioner Psychiatry 11/22/24 documented as of this encounter
--- OUTSIDE RECORDS SUMMARY | 2025-05-08 12:29 | XMS_ITS | Encounter Summary ---
Author Organization [facility] Address [address] [facility] [place] [address] Care Team Providers Care Distributor Sales Manager Name Role Phone Kaci HannaGabriel Unavailable [phone] Shaikh ROLANDO Hernández Primary Care Provider [phone] Juan José Giron MD Primary Care Provider [phone] Deepti Delong NP Unavailable [phone] Yue Carter PLATE INSPECTOR-ESL PROFESSOR Unavailable Reason for Visit * Reason Comments Med Refill Encounter Details Date Type Department Care Team (Late st Contact Info) Description 04/28/2024 Refill N[facility] [address] [facility] 160 [place] [address] Yue Carter, PLATE INSPECTOR-ESL PROFESSOR [address] [facility] 160 [place] [address] Other insomnia Social History Tobacco [...] LP N documented as of this encounter Plan of Treatment Upcoming Encounters Date Type Department Care Team (Late st Contact Info) Description 05/12/2025 8:00 AM EDT Social Work [facility] [address] [place] [address] Kaci Hanna, LAWN TECHNICIAN-S [address] [place] [address] 05/13/2025 1:30 PM EDT Office Visit [facility] 629 [place] [address] Quan Mccoy, PA [address] [facility] 150 [place] [address] 05/14/2025 9:00 AM EDT Office Visit [facility] CI [address] [facility] 160 [place] [address] Yue Carter, PLATE INSPECTOR-ESL PROFESSOR [address] [facility] 160 [place] [address] 06/03/2025 10:00 AM EDT Office Visit [facility] [address] [place] [address] Monserrat Bell NP [address] [place] [address] 06/12/2025 3:00 PM EDT Office Visit [facility] 629 [facility] [place] [address] Jose Haile, AMRÍA 629 [facility] [place] [address] 07/03/2025 8:00 AM EDT Office Visit [facility] [address] [facility] [place] [address] Yayo Tierney, [address] [place] [address] 05/12/2026 9:00 AM EDT Office Visit [facility] OB [address] [facility] [place] [address] Yayo Tierney, [address] [place], [place] [address] documented as of this encounter Visit Diagnoses Diagnosis Other insomnia documented in this encounter Additional Health Concerns Assessment Noted Time PHQ-9 Depression Total Score: 1 10/23/20 23 4:00 PM EST documented as of this encounter Care Teams Distributor Sales Manager Relationship Specialty Start Date End Date Shaikh Hernández MD [address] [place] [address] PCP - General Internal Medicine 12/04/23 07/15/24 Juan José Giron MD [address] [place] [address] PCP - General Family Medicine 07/16/24 Kaci Hanna, AMANS [address] [place] [address] Client Success Specialist Behavioral Health 03/28/23 Deepti Delong NP [address] [place] [address] Nurse Practitioner Family Medicine 07/16/24 Yue Carter APRN-ESL PROFESSOR [address] [facility] 160 [place] [address] Nurse Practitioner Psychiatry 11/22/24 documented as of this encounter
--- OUTSIDE RECORDS SUMMARY | 2025-05-08 12:29 | XMS_ITS | Encounter Summary ---
Author Organization [facility] Address [address] [place] [address] Care Team Providers Care Digital Asset Coordinator Name Role Phone Kaci Hanna AIR CONDITIONING UNIT ASSEMBLER-S Unavailable [phone] Shaikh ROLANDO Hernández Primary Care Provider [phone] Juan José Giron MD Primary Care Provider [phone] Deepti Delong REAL ESTATE SALESPERSON Unavailable [phone] Yue Carter COUNCILOR-SUPERVISOR FIBER LOCKING Unavailable Encounter Details Date Type Department Care Team (Late st Contact Info) Description 05/13/2024 Orders Only [facility] [address] [place] [address] Mi Paredes HI [address] [place] [address] Social History Tobacco Use Types Packs/Day Years [...] EDT Social Work [facility] [address] [place] [address] Kaci Hanna LISW-S [address] [place] [address] 05/13/2025 1:30 PM EDT Office Visit [facility] [address] [facility] [place] [address] Quan Mccoy, PA [address] [facility] 150 [place] [address] 05/14/2025 9:00 AM EDT Office Visit [facility] [address] [facility] 160 [place] [address] Yeu Carter, COUNCILOR-[facility] [address] [facility] 160 [place] [address] 06/03/2025 10:00 AM EDT Office Visit [facility] [address] [place] [address] Monserrat Bell NP [address] [place] [address] 06/12/2025 3:00 PM EDT Office Visit [facility] 629 [facility] [place] [address] Jose Haile, MARÍA [address] [place] [address] 07/03/2025 8:00 AM EDT Office Visit [facility] OB [address] [facility] [place] [address] Yayo Tierney, [address] [facility] [address] [place], [place] [address] 05/12/2026 9:00 AM EDT Office Visit [facility] OB [address] [facility] [place] [address] Yayo Tierney [address] [place] [address] documented as of this encounter Procedures Procedure Name Priority Date/Time Associated Diagnosis Comments PAP SMEAR Routine 05/06/2024 12:00 AM EDT documented in this encounter Results * Pap Smear (05/06/2024 12:00 AM EDT) Swab Cervical swab / Unknown Yayo Tierney DO LAB CYTOLOGY ORDERABLES Final Re sult EXTERNAL LAB documented in this encounter Visit Diagnoses Not on filedocumented in this encounter Additional Health Concerns Assessment Noted Time PHQ-9 Depression Total Score: 1 10/23/20 23 4:00 PM EST documented as of this encounter Care Teams Digital Asset Coordinator Relationship Specialty Start Date End Date Shaikh Hernández MD [address] [place] [address] PCP - General Internal Medicine 12/04/23 07/15/24 Juan José Giron MD [address] [place] [address] PCP - General Family Medicine 07/16/24 Kaci Hanna LISW-S [address] [facility] [place], [place] [address] Mobile Architect Behavioral Health 03/28/23 Deepti Delong NP [address] [place] [address] Nurse Practitioner Family Medicine 07/16/24 Yue Carter, COUNCILOR-SUPERVISOR FIBER LOCKING [address] [facility] 160 [place] [address] Nurse Practitioner Psychiatry 11/22/24 documented as of this encounter
--- OUTSIDE RECORDS SUMMARY | 2025-05-08 12:29 | XMS_ITS | Encounter Summary ---
Author Organization [facility] Address [address] [place] [address] Care Team Providers Care Laboratory Immunologist Name Role Phone Shaikh ROLANDO Hernández Primary Care Provider [phone] Kaci Hanna SOCIAL SCIENCE RESEARCH ASSISTANT-S Unavailable [phone] Shaikh ROLANDO Hernández Primary Care Provider [phone] Juan José Giron MD Primary Care Provider [phone] Deepti Delong NP Unavailable [phone] Yue Carter INFUSION PHARMACIST-BICYCLE REPAIRER Unavailable Reason for Visit * Reason Comments Med Refill Encounter Details Date Type Department Care Team ([facility] Contact Info) Description 04/28/2023 Refill [facility] [address] [facility] 160 [place] [address] Yue Carter, [facility] MED[facility] CENTERBICYCLE REPAIRER [address] [facility] 160 [place], [place] [address] Other insomnia; VIRAL (generalized anxiety disorder) Social [...] Social Work [facility] BH [address] [place] [address] Kaci Hanna, WILL-S [address] [place] [address] 05/13/2025 1:30 PM EDT Office Visit [facility] 629 [place] [address] Quan Mccoy, PA [address] [facility] 150 [place] [address] 05/14/2025 9:00 AM EDT Office Visit [facility] BH [address] [facility] 160 [place] [address] Daisy-Yue Vidal, INFUSION PHARMACIST-[facility] [address] [facility] 160 [place] [address] 06/03/2025 10:00 AM EDT Office Visit [facility] [address] [place] [address] Monserrat Bell NP [address] [place] [address] 06/12/2025 3:00 PM EDT Office Visit [facility] 629 [place] [address] Jose Haile, MARÍA 629 [facility] [place] [facility] [place] [address] 07/03/2025 8:00 AM EDT Office Visit [facility] OB [address] [place] [address] Yayo Tierney, DO [address] [facility] [address] [place], [place] [address] 05/12/2026 9:00 AM EDT Office Visit [facility] OB [address] [place] [address] Yayo Tierney, DO [address] [facility] [place] [address] documented as of this encounter Visit Diagnoses Diagnosis Other insomnia VIRAL (generalized anxiety disorder) Generalized anxiety disorder documented in this encounter Care Teams Laboratory Immunologist Relationship Specialty Start Date End Date Shaikh Hernández MD PCP - General Internal Medicine 03/28/23 12/03/23 Shaikh Hernández MD [address] [place] [address] PCP - General Internal Medicine 12/04/23 07/15/24 Juan José Giron MD [address] [place] [address] PCP - General Family Medicine 07/16/24 Kaci Hanna LISW-S [address] [place] [address] Service Desk Specialist Behavioral Health 03/28/23 Deepti Delong NP [address] [place] [address] Nurse Practitioner Family Medicine 07/16/24 Yue Carter APRN-BICYCLE REPAIRER [address] [address] Nurse Practitioner Psychiatry 11/22/24 documented as of this encounter
--- OUTSIDE RECORDS SUMMARY | 2025-05-08 12:29 | XMS_ITS | Encounter Summary ---
Author Organization [facility] Address [address] [place] [address] Care Team Providers Care Jockey Valet Name Role Phone Shaikh ROLANDO Hernández Primary Care Provider [phone] Kaci Hanna FLAME CUTTER-S Unavailable [phone] Shaikh ROLANDO Hernández Primary Care Provider [phone] Juan José Giron MD Primary Care Provider [phone] Deepti Delong NP Unavailable [phone] Yue Carter NURSE SITTER-PROBATE JUDGE Unavailable Reason for Visit * Reason Comments Med Refill Encounter Details Date Type Department Care Team ([facility] Contact Info) Description 05/04/2023 Refill [facility] [address] [facility] 160 [place] [phone] Yue Carter, [facility] 112 [facility] 160 [place], [place] [id number] Other insomnia; VIRAL (generalized anxiety disorder) Social [...] Social Work [facility] [address] [place] [address] Kaci Hanna, WILL-S [address] [place] [address] 05/13/2025 1:30 PM EDT Office Visit [facility] [address] [place] [address] Quan Mccoy, PA [address] [facility] 150 [place] [address] 05/14/2025 9:00 AM EDT Office Visit [facility] [address] [facility] 160 [place] [phone] Daisy-Yue Vidal, NURSE SITTER-[facility] [address] [facility] 160 [place] [address] 06/03/2025 10:00 AM EDT Office Visit [facility] [address] [place] [address] Monserrat Bell NP [address] [place] [address] 06/12/2025 3:00 PM EDT Office Visit [facility] [address] [place] [address] Jose Haile, MARÍA [facility] [facility] [place] [address] 07/03/2025 8:00 AM EDT Office Visit [facility] [address] [place] [phone] Yayo Tierney, DO [address] [facility] [address] [place], [place] [address] 05/12/2026 9:00 AM EDT Office Visit [facility] OB [address] [facility] [address] Yayo Tierney, DO [address] [facility] [place] [address] documented as of this encounter Visit Diagnoses Diagnosis Other insomnia VIRAL (generalized anxiety disorder) Generalized anxiety disorder documented in this encounter Care Teams Jockey Valet Relationship Specialty Start Date End Date Shaikh Hernández MD PCP - General Internal Medicine 03/28/23 12/03/23 Shaikh Hernández MD [address] [place] [address] PCP - General Internal Medicine 12/04/23 07/15/24 Juan José Giron MD [address] [place] [address] PCP - General Family Medicine 07/16/24 Kaci Hanna LISW-S [address] [facility] [place] [address] Border Measurer Behavioral Health 03/28/23 Deepti Delong NP [address] [place] [address] Nurse Practitioner Family Medicine 07/16/24 Yue Carter APRN-PROBATE JUDGE [address] [address] Nurse Practitioner Psychiatry 11/22/24 documented as of this encounter
--- OUTSIDE RECORDS SUMMARY | 2025-05-08 12:29 | XMS_ITS | Encounter Summary ---
Author Organization [facility] Address [address] [place] [address] Care Team Providers Care Home Health Lpn Name Role Phone Shaikh ROLANDO Hernández Primary Care Provider [phone] Kaci HannaW-S Unavailable [phone] Shaikh ROLANDO Hernández Primary Care Provider [phone] Juan José Giron MD Primary Care Provider [phone] Deepti Delong NP Unavailable [phone] Yue Carter EARTH MOVING TECHNICIAN-ASSISTANT PRINTER FLOOR COVERING Unavailable Reason for Visit * Reason Comments Med Refill Encounter Details Date Type Department Care Team ([facility] Contact Info) Description 07/30/2023 Refill [facility] [address] [facility] 160 [place] [address] Yue Carter, [facility]-ASSISTANT PRINTER FLOOR COVERING 112 [facility] 160 [place], [place] [phone] Other insomnia Social History Tobacco Use Types Packs/Day Years Used Date Smoking Tobacco: Former Cigarettes Smokeless Tobacco: Never Alcohol Use Standard Drinks/Week Comments Yes 0 (1 standard drink = 0.6 oz pure alcohol) caffeine:1-2 cups coffee and green tea PHQ-2 Answer Date Recorded Patient Health Questionnaire-2 Score 0 07/19/2023 Education Answer Date Recorded What is the [...] Social Work [facility] [address] [place] [address] Kaci Hanna, WILL-S [address] [place] [address] 05/13/2025 1:30 PM EDT Office Visit [facility] [address] [place] [phone] Quan Mccoy, PA [address] [facility] [address] [place] [address] 05/14/2025 9:00 AM EDT Office Visit [facility] [address] [facility] 160 [place] [address] Daisy-Yue Vidal, EARTH MOVING TECHNICIAN-[facility] [address] [facility] [address] [place] [address] 06/03/2025 10:00 AM EDT Office Visit [facility] [address] [place] [address] Monserrat Bell NP [address] [place] [address] 06/12/2025 3:00 PM EDT Office Visit [facility] [address] [place] [phone] Jose Haile, MARÍA [address] [facility] [address] 07/03/2025 8:00 AM EDT Office Visit [facility] 102 [facility] [place] [phone] Yayo Tierney, DO [address] [facility] [place] [address] 05/12/2026 9:00 AM EDT Office Visit [facility] OB [address] [facility] [place] [address] Yaoy Tierney, DO [address] [facility] [place] [address] documented as of this encounter Visit Diagnoses Diagnosis Other insomnia documented in this encounter Care Teams Home Health Lpn Relationship Specialty Start Date End Date Shaikh Hernández MD PCP - General Internal Medicine 03/28/23 12/03/23 Shaikh Hernández MD [address] [place] [address] PCP - General Internal Medicine 12/04/23 07/15/24 Juan José Giron MD [address] [place] [phone] PCP - General Family Medicine 07/16/24 Kaci Hanna, AMANS [address] [place] [address] Memorial Designer Behavioral Health 03/28/23 Deepti Delong, MARÍA [address] [place] [address] Nurse Practitioner Family Medicine 07/16/24 Yue Carter APRN-ASSISTANT PRINTER FLOOR COVERING [address] [address] Nurse Practitioner Psychiatry 11/22/24 documented as of this encounter
--- OUTSIDE RECORDS SUMMARY | 2025-05-08 12:30 | XMS_ITS | Encounter Summary ---
Author Organization Status4 tem Address [facility] [place]-[id number] [address] [place] [address] Care Team Providers Care Business Manager College Or University Name Role Phone Monserrat Bell APRN-NEUROPHYSIOLOGIST Primary Care Provider Encounter Details Date Type Department Care Team (Latest Contact Info) Description 05/07/2025 Travel Social History Tobacco Use Types Packs/Day Years Used Date Smoking Tobacco: Never Smokeless Tobacco: Never Alcohol Use Standard Drinks/Week Comments Yes 0 (1 standard drink = 0.6 oz pur e alcohol) rarely [employer] Utilities Answer Date Recorded In the past 12 months has [employer], gas, oil, or water [employer] threatened to shut off services in your [...] Description 05/27/2025 12:30 PM EDT Hospital Encounter [facility] Surgery [address] [place] [address] Jos Landeros Jr., DO [address] [place] [address] 05/27/2025 12:30 PM EDT - 05/27/2025 1:45 PM EDT Surgery [facility] Surgery [address] [place] [address] Jos Landeros Jr., DO [address] [place] [address] ARTHROSCOPIC LATERAL RELEASE KNEE [[id number] (CPT )] Scheduled Procedures Name Priority Associated [...] Katy Godinez documented as of this encounter Visit Diagnoses Not on filedocumented in this encounter Additional Health Concerns Active Problems Noted Date Diagnosed Date Autogenerated Problem 04/22/2025 Assessment Noted Time PHQ-9 Depression Total Score: 0 02/14/20 24 2:46 PM EDT documented as of this encounter Care Teams Business Manager College Or University Relationship Specialty Start Date End Date Monserrat Bell, FIRE TECHNOLOGY INSTRUCTOR-NEUROPHYSIOLOGIST PCP - General Nurse Practitioner 01/31/25 documented as of this encounter
--- OUTSIDE RECORDS SUMMARY | 2025-05-08 12:30 | XMS_ITS | Clinical Summary ---
Author Organization [employer] Address [facility] [id number] [address] [place] [address] Care Team Providers Care Salt Grinder Name Role Phone Monserrat Bell APRN-MARKETING PROJECT COORDINATOR Primary Care Provider Allergies Active Allergy Reactions Criticality Noted Date Comments Morphine Nausea And Vomiting Low 08/18/2021 Medications QUEtiapine (SEROquel) 300 mg tablet Take 1 tablet (300 mg total) by mouth nightly. Active ascorbic acid, vitamin C, (VITAMIN C) 250 mg tablet Take 1 tablet (250 mg total) by mouth in the morning. Active cholecalciferol , vitamin D3, (VITAMIN D3) 5,000 units capsule Take 1 capsule (5,000 Units total) by mouth in the morning. Active magnesium (MAGTAB) 84 mg tablet extended release CR tablet Take 1 tablet (84 mg total) by mouth in the morning. Active calcium citrate (CALCITRATE) 200 mg (950 mg) tablet Take 1 tablet (200 mg total) by mouth in the morning. Active omeprazole (PriLOSEC) 20 mg capsule 1 capsule (20 mg total) every morning before breakfast. 4 Active SUMAtriptan (IMITREX) 100 mg tablet Take 1 tablet (100 mg total) by mouth as needed. Active traZODone (DESYREL) 50 mg tablet Take 1 tablet (50 mg total) by mouth nightly as needed. Active lamoTRIgine (LaMICtal) 150 mg tablet Take 1 tablet (150 mg total) by mouth in the morning and 1 tablet (150 mg total) before bedtime. Active hydrOXYzine (VISTARIL) 25 mg capsule Take 1 capsule (25 mg total) by mouth every 8 (eight) hours as needed. 05/07/20 25 Discontinue d(Therapy completed) estradioL (ESTRACE) 1 mg tablet Take 1 tablet (1 mg total) by mouth in the morning. 4 05/07/20 25 ibuprofen (MOTRIN) 800 mg tablet Take 1 tablet (800 mg total) by mouth every 8 (eight) hours as needed for pain. 30 tablet 4 05/07/20 25 Discontinue d(Therapy completed) Active Problems Problem Noted Date Diagnosed Date Herniated lumbar intervertebral disc 02/14/2024 BMI 20.0-20.9, adult 02/02/2024 Anxiety 02/02/2024 Diastasis of rectus abdominis 02/02/2024 Epigastric hernia 02/02/2024 Herniation of intervertebral disc of cervical re gion 02/02/2024 Migraine headache 02/02/2024 Hyperreflexia 01/26/2024 Arthritis of left knee 01/04/2024 Hammer toe 01/04/2024 Lumbar back pain with radicu lopathy affecting right lower extremity 01/04/2024 Overview (02/02/2024): Last Assessment & Plan: Ongoing lumbar back pain for about 5-6 [...] on safety issues related to opioid use. Moderate episode of recurrent major depressive d isorder 01/04/2024 Osteoarthritis of knee 01/04/2024 Primary osteoarthritis 01/04/2024 Primary localized osteoarthrosis of ankle and fo ot 01/04/2024 Primary osteoarthritis of left hand 01/04/2024 Primary osteoarthritis, right hand 01/04/2024 Primary osteoarthritis of right foot 01/04/2024 Lumbar epidural mass 12/20/2023 Overview (02/02/2024): Last Assessment & Plan: MRI Lumbar spine ordered for back pain showed a 1.2 cm mass at the right L2-3 neural foramina producing mass effect upon the right L2 nerve root. MRI with contrast recommended by Radiology. Order placed. Lumbago with sciatica, right side 10/23/2023 Overview (02/02/2024): Last Assessment & Plan: low back pain, [...] based on the severity of her symptoms VIRAL (generalized anxiety disorder) 03/07/2023 Grief 03/07/2023 Neck pain 10/01/2019 Chronic pain disorder 08/24/2019 Neuropathy 06/10/2019 Encounters Date Type Department Care Team Description 05/07/2025 9:01 AM EDT - 05/07/2025 11:59 PM EDT Hospital Encounter [facility] - Cardiovascular [address] [place] [address] Senthil Ortega MD Preop examination Discharge Disposition: Home 05/07/2025 9:00 AM EDT Procedure visit [facility] - Pre Admit [address] [place] [address] Preop examination (Primary Dx) 05/07/2025 Travel from Last 3 Months Immunizations Immunization Administration Dates Next Due Tdap 05/05/2019 Family History Medical History Relation Name Comments Asthma Father COPD Father Stroke Maternal Grandmother Cancer Mother Lung cancer Mother Breast cancer Neg Hx Relation Name Status Comments Father Maternal Grandmother Mother Social History Tobacco Use Types Packs/Day Years Used Date Smoking Tobacco: Never Smokeless Tobacco: Never Tobacco Cessation:Counseling Given: Not Answered Alcohol Use Standard Drinks/Week Comments Yes 0 (1 standard drink = 0.6 oz pur e alcohol) rarely [facility] Utilities Answer Date Recorded In the past 12 months has [employer], gas, oil, or water [employer] threatened to shut off services in your [...] Sign Reading Time Taken Comments Blood Pressure 121/72 10/29/2024 10:15 AM EST Pulse 77 10/29/2024 10:15 AM EST Temperature 36.8 C (98.2 F) 10/15/2024 9:50 AM EST Respiratory Rate 16 10/15/2024 11:10 AM EST Oxygen Saturation 91% 10/15/2024 11:10 AM EST Inhaled Oxygen Concentration - - Weight 76.2 kg (168 lb) 05/07/2025 9:04 AM EDT Height 157.5 cm (5' 2 ) 05/07/2025 9:04 AM EDT Body Mass Index 30.73 05/07/2025 9:04 AM EDT Plan of Treatment Upcoming Encounters Date Type Department Care Team (Late st Contact Info) Description 05/27/2025 12:30 PM EDT Hospital Encounter [facility] - Surgery [address] [place] [address] Jos Landeros Jr., DO [address] [place] [address] 05/27/2025 12:30 PM EDT - 05/27/2025 1:45 PM EDT Surgery [facility] Surgery [address] [facility] [place] [address] Jos Landeros Jr., DO [address] [place] [address] ARTHROSCOPIC LATERAL RELEASE KNEE [[id number] (CPT )] Scheduled Procedures Name Priority Associated Diagnoses Date/Ti me ARTHROSCOPIC LATERAL RELEASE KNEE left knee internal derangement 05/27/2025 12:30 PM EDT ARTHROSCOPIC PARTIAL SYNOVECTOMY KNEE left knee internal derangement 05/27/2025 12:30 PM EDT Health Maintenance Due Date Last Done Comments Adult BMI Follow Up Plan 1990 Zoster (Shingles) Vaccine (1 of 2) 2022 Depression Screening 02/13/2025 02/14/2024 Influenza Vaccine 07/07/2025 Adult BMI Screening 05/07/2026 05/07/2025 Tobacco Screening 05/07/2026 05/07/2025 DTaP,Tdap and Td Vaccines (2 - Td or Tdap) 05/05/2029 05/05/2019 Pap Smear Discontinued 05/06/2024 Goals Goal Patient Goal Type Associated Problems Recent Progress Patient-Stated? Author Autogenera leif Goal Care Plan Autogenerated Problem No Godinez, [place] Medical Devices Implanted Type Area Director Of Security Device Identifier Shelf Expiration Date Model / Serial / Lot Matrix Tiss V92 Fbr Cell Bn Mtrx Joseph 2.5ml - [id number] - [id number] Implanted:Qty: 1 on 08/27/2021 by Tyree Olivo DPM at [facility] Graft Right: Foot [employer] 04/12/2024 [id number]-[id number] / [id number] / NA Mesh [id number] 3d Rect Plstr Clgn Symbotex 2 Sd Comp Mfl Babsr - Sna - [id number] Implanted:Qty: 1 on 10/15/2024 by Francisco Tovar DO at [facility] Mesh N/A: Abdomen [employer] 06/05/2028 [id number] / NA / [id number] Nail Im 50mm 5.5mm 4 Hl Hi Compressoin Phntm Ti Rt Lapidus - Sna - [id number] Implanted:Qty: 1 on 08/27/2021 by Tyree Olivo DPM at [facility] Nail Right: Foot [employer] 11/06/2022 [id number] 550 / NA / NA Peg Fx 3.5mm 16mm Thrd Phntm Lapidus - Sna - [id number] Implanted:Qty: 2 on 08/27/2021 by Tyree Olivo DPM at [facility] Orthopedic Implant Right: Foot [employer] 11/06/2022 [id number] 516 / NA / NA Peg Fx 3.5mm 14mm Antirotation Phntm Lapidus - Sna - [id number] Implanted:Qty: 1 on 08/27/2021 by Tyree Olivo DPM at [facility] Orthopedic Implant Right: Foot [employer] 11/06/2022 [id number] 514 / NA / NA Plate Bn Med 2 Ray Gorilla Sec 3rd Tarsometatarsal Rt - Sna - [id number] Implanted:Qty: 1 on 08/27/2021 by Tyree Olivo DPM at [facility] Plate Right: Foot [employer] 11/06/2022 P53-110- [id number] / NA / NA Screw Bn 28mm 4mm Hd Mn-Mnstr St Ns - Sna - [id number] Implanted:Qty: 1 on 08/27/2021 by Tyree Olivo DPM at [facility] Screw Right: Foot [employer] 11/06/2022 P20-140- [id number] / NA / NA Screw Bn 20mm 3.5mm Nonlock Plt Gorilla R3con Ns - Sna - [id number] Implanted:Qty: 2 on 08/27/2021 by Tyree Olivo DPM at [facility] Screw Right: Foot [employer] 11/06/2022 P50-453- [id number] / NA / NA Screw Bn 22mm 3.5mm Gorilla Ns R3con Non Lck Plt - Sna - [id number] Implanted:Qty: 2 on 08/27/2021 by Tyree Olivo DPM at [facility] Screw Right: Foot [employer] 11/06/2022 P50-453- [id number] / NA / NA Screw Bn 14mm 3.5mm Gorilla Ns R3con Nonlock Plt Gorilla - Sna - [id number] Implanted:Qty: 2 on 08/27/2021 by Tyree Olivo DPM at [facility] Screw Right: Foot [employer] 11/06/2022 P50-453- [id number] / NA / NA Explanted Type Area Director Of Security Device Identifier Shelf Expiration Date Model / Serial / Lot Wire Fx Krsh 2mm 150mm 1 End Troc Tip Smth - Sna - [id number] Explanted:Qty : 1 on 08/27/2021 by Tyree Olivo DPM at [facility] Orthopedic Implant Right: Foot [employer] 11/06/2022 [id number] 015 / NA / NA Wire Fx Krsh 1.2mm 150mm 1 End Troc Tip Smth - Sna - [id number] Explanted:Qty : 1 on 08/27/2021 by Tyree Olivo DPM at [facility] Orthopedic Implant Right: Foot [employer] 11/06/2022 [id number] / NA / NA Procedures Procedure Name Priority Date/Time Associated Diagnosis Comments ECG 12-LEAD Routine 05/07/2025 9:16 AM EDT Preop examination from Last 3 Months Results * ECG 12 lead (05/07/2025 9:16 AM EDT) 05/07/2025 9:16 AM EDT Narrative TRACEMASTERVUE - 05/07/2025 2:48 PM EDT us Senthil Ortega MD ECG ORDERABLES Final Result TRACEMASTERVUE from Last 3 Months Additional Health Concerns Active Problems Noted Date Diagnosed Date Autogenerated Problem 04/22/2025 Insurance MEDICARE MEDICAID [place] Advance Directives * Full Code (Latest Code Status on File) Date Activated Date Inactivated Comments 02/14/2024 11:25 AM 02/15/2024 10:13 AM Care Teams Salt Grinder Relationship Specialty Start Date End Date Monserrat Bell, PSYCHOLOGY INTERN-MARKETING PROJECT COORDINATOR PCP - General Nurse Practitioner 01/31/25
--- OUTSIDE RECORDS SUMMARY | 2025-05-08 12:30 | XMS_ITS | Encounter Summary ---
Author Organization [facility] Address [address] [place] [address] Care Team Providers Care Supervisor Forming Department Name Role Phone Shaikh ROLANDO Hernández Primary Care Provider [phone] Kaci Hanna ADMINISTRATIVE OPERATIONS COORDINATOR-S Unavailable [phone] Shaikh ROLANDO Hernández Primary Care Provider [phone] Juan José Giron MD Primary Care Provider [phone] Deepti Delong SERVICE ORDER CLERK Unavailable [phone] Daisy-Yue Vidal ELECTROMECHANICAL TECHNICIAN-ROTOR WINDER Unavailable Encounter Details Date Type Department Care Team (Late st Contact Info) Description 11/03/2023 Orders Only [facility] [address] [place] [address] Shaikh Hernández MD [address] [place] [address] Social History Tobacco Use Types Packs/Day Years Used Date Smoking Tobacco: Never Smokeless Tobacco: Never Alcohol Use Standard Drinks/Week Comments Not Currently 0 (1 standard drink = 0.6 oz pure alcohol) caffeine:1-2 cups coffee and green tea PHQ-2 Answer Date Recorded Patient Health Questionnaire-2 Score 1 10/23/2023 Education Answer Date Recorded What is the [...] Social Work [facility] [address] [place] [address] Kaci Hanna LISW-S [address] [place] [address] 05/13/2025 1:30 PM EDT Office Visit [facility] [address] [place] [address] Quan Mccoy, PA [address] [facility] 150 [place] [address] 05/14/2025 9:00 AM EDT Office Visit [facility] [address] [facility] 160 [place] [phone] Daisy-Yue Vidal, ELECTROMECHANICAL TECHNICIAN-ROTOR WINDER [address] [facility] 160 [place] [address] 06/03/2025 10:00 AM EDT Office Visit [facility] [address] [place] [address] Monserrat Bell NP [address] [place] [address] 06/12/2025 3:00 PM EDT Office Visit [facility] 6[address] [facility] [address] Jose Haile NP 6[address] [facility] [place] [address] 07/03/2025 8:00 AM EDT Office Visit [facility] OB 102 [facility] [place] [address] Yayo Tierney, DO [address] [facility] [address] [place] [place], [place] [address] 05/12/2026 9:00 AM EDT Office Visit [facility] OB [address] [facility] [place] [address] Yayo Tierney, DO [address] [facility] [place] [address] documented as of this encounter Procedures Procedure Name Priority Date/Time Associated Diagnosis Comments XR SPINE Routine 11/03/2023 9:36 AM EST documented in this encounter Results * XR spine (11/03/2023 9:36 AM EST) Anatomical Region Laterality Modality Spine Radiographic Roberta ging Shaikh Betty MARSHALL IMG XR PROCEDURES Final Result documented in this encounter Visit Diagnoses Not on filedocumented in this encounter Additional Health Concerns Assessment Noted Time PHQ-9 Depression Total Score: 1 10/23/20 23 4:00 PM EST documented as of this encounter Care Teams Supervisor Forming Department Relationship Specialty Start Date End Date Shaikh Hernández MD PCP - General Internal Medicine 03/28/23 12/03/23 Shaikh Hernández MD [address] [place] [address] PCP - General Internal Medicine 12/04/23 07/15/24 Juan José Giron MD [address] [place] [address] PCP - General Family Medicine 07/16/24 Kaci Hanna LISW-S [address] [place] [address] Regional Production Manager Behavioral Health 03/28/23 Deepti Delong NP [address] [place] [address] Nurse Practitioner Family Medicine 07/16/24 Yue Carter, ELECTROMECHANICAL TECHNICIAN-ROTOR WINDER [address] [place] [address] Nurse Practitioner Psychiatry 11/22/24 documented as of this encounter
--- OUTSIDE RECORDS SUMMARY | 2025-05-08 12:30 | XMS_ITS | Encounter Summary ---
Author Organization [facility] Address [address] [place] [address] Care Team Providers Care Laboratory Equipment Cleaner Name Role Phone Cyndi Kaci Rios AMANS Unavailable [phone] Juan José Giron MD Primary Care Provider [phone] Deepti Delong NP Unavailable [phone] Yue Carter FUEL MANAGER-GLASS CUTTER HELPER Unavailable Reason for Visit * Reason Comments Med Refill Encounter Details Date Type Department Care Team (Late st Contact Info) Description 01/06/2025 Refill [facility] [address] [facility] [address] [place] [address] Yue Carter, FUEL MANAGER-GLASS CUTTER HELPER [address] [facility] [place] [address] [place] [address] Bipolar II disorder, most recent episode major depressive (HCC); Other insomnia Social History Tobacco Use Types [...] Date Recorded Patient Health Questionnaire-2 Score 0 10/28/2024 Education Answer Date Recorded What is the [...] EDT Social Work [facility] [address] [place] [address] Kaci Hanna LISW-S [address] [place] [address] 05/13/2025 1:30 PM EDT Office Visit [facility] [address] [place] [phone] Quan Mccoy, PA [address] [facility] [place] [address] [place] [address] 05/14/2025 9:00 AM EDT Office Visit [facility] [address] [facility] [address] [place] [id number] Yue Carter, FUEL MANAGER-[facility] [address] [facility] [place] [address] [place] [address] 06/03/2025 10:00 AM EDT Office Visit [facility] [address] [place] [phone] Monserrat Bell NP [address] [place] [address] 06/12/2025 3:00 PM EDT Office Visit [facility] [address] [place] [phone] Jose Haile, [employer] INTELLIGENCE OFFICER [address] [place], [place] [id number] 07/03/2025 8:00 AM EDT Office Visit [facility] [address] [place] [address] Yayo Tierney, DO [address] [facility] [address] [place], [place] [id number] 05/12/2026 9:00 AM EDT Office Visit [facility] [address] [place] [address] Yayo Tierney, DO [address] [facility] [address] [place] [place], [place] [id number] documented as of this encounter Visit Diagnoses Diagnosis Bipolar II disorder, most recent episode major depressive (HCC) Other bipolar disorders Other insomnia documented in this encounter Additional Health Concerns Assessment Noted Time PHQ-9 Depression Total Score: 1 10/23/20 23 4:00 PM EST documented as of this encounter Care Teams Laboratory Equipment Cleaner Relationship Specialty Start Date End Date Juan José Giron MD [address] [place] [phone] PCP - General Family Medicine 07/16/24 Kaci Hanna, AMANS [address] [place], [place] [id number] [employer] [facility] 03/28/23 Deepti Delong NP [address] [place] [address] Nurse Practitioner Family Medicine 07/16/24 Yue Carter APRN-GLASS CUTTER HELPER [address] [facility] [place] [address] Nurse Practitioner Psychiatry 11/22/24 documented as of this encounter
[2025-05-14 08:09] LABS: Age Gdln ACOG Testing Note (.); IGP, Aptima HPV, rfx 16/18,45 Note (.)
== END 2025-05-08 12:22 | disposition home or self-care (01) ==
LOC: LAB 12:21
PROVIDERS: Visit Provider Obstetrics & Gynecology
DX: Z01.419 Encounter for gynecological examination (general) (routine) without abnormal findings (principal)
CPT/HCPCS: 87624; 88175